=== PATIENT | male | born 1955 | race Caucasian/White ===

== ENCOUNTER 2018-04-04 03:13 | Emergency (ER) | payer OTHER, SELFPAY ==
[2018-04-04 04:09] VITALS: BP 155/88; PULSE 76; RESP 20; TEMP 36.5; O2SAT 94
[2018-04-04] MEDS: Ketorolac 30 MG/ML VIAL 15 MG IVP (04:57)
[2018-04-04] MEDS: Ondansetron 4 MG/2 ML VIAL IVP (04:59)
[2018-04-04] MEDS: MORPHine 10 MG/ML VIAL 5 MG IVP (05:02)
[2018-04-04 05:03] LABS: Abs Immature Grans 0.02 k/cumm (0.0-0.09); Absolute Basophil Count 0.02 k/cumm (0.0-0.2); Absolute Eosinophil Count 0.03 k/cumm (0.0-0.7); Absolute Lymphocyte Count 0.73 k/cumm (1.2-3.4); Absolute Monocyte Count 0.37 k/cumm (0.11-0.7); Absolute Neutrophil Count 7.39 k/cumm (1.2-6.7); Basophils % 0.2; Eosinophils % 0.4; HGB 15.3 g/dL (13.5-17.5); Immature Grans % 0.2; Lymphocytes % 8.5; Mean Corp. HGB Concentration 34.8 g/dL (32.0-36.0); Mean Corpuscular Hemoglobin 31.9 pg (27.0-33.0); Mean Corpuscular Volume 91.9 fL (80-95); Mean Platelet Volume 9.1 fL (8.0-11.0); Monocytes % 4.3; Neutrophils % 86.4; Platelet Count 178 x1000/uL (130-400); RBC 4.79 m/cumm (4.50-6.00); RBC Distribution Width 13.7 % (11.8-14.1); White Blood Cell Count 8.56 k/cumm (4.4-10.8)
[2018-04-04 05:08] LABS: Anion Gap 8.7 mmol/L (3-11); BUN 22 mg/dL (7-18); CO2 29.3 mmol/L (21.0-32.0); CREATININE 0.91 mg/dL (0.70-1.30); Chloride 101 mmol/L (98-107); Glucose 153 mg/dL (70-100); Potassium 3.8 mmol/L (3.5-5.1); Sodium 139 mmol/L (136-145)
--- NOTE | 2018-04-04 05:20 | DI.CT_ITS ---
SYMPTOM/DIAGNOSIS: LEFT FLANK PAIN RENAL COLIC CT: The study was carried out without contrast enhancement according to the usual protocol. Pulmonary nodules are noted at the lung bases measuring up to 9 mm on the right side. These findings appear stable when compared with the prior study. Note is also made of elevation of the right hemidiaphragm. Simple hepatic cyst is noted in the right hepatic lobe measuring 2.1 cm. The gallbladder and biliary tree appear intact. There are no stones or ductal dilatation. The pancreas is normal. There is no pancreatic duct dilatation. The spleen is normal. There is no evidence of splenomegaly or localized splenic mass. The adrenals are normal. Bilateral nonobstructing nephrolithiasis is noted. There is mild to moderate left sided hydronephrosis and hydroureter to the level of an obstructing mid ureteral calculus at the level of L4 which measures 5 x 3 mm. Bilateral nonobstructing nephrolithiasis is apparent. Colonic diverticulosis is identified. There is no evidence of diverticulitis. There is nothing to suggest an acute appendix. There is no evidence of free air or free fluid in the intraperitoneal space. Chronic bilateral L5 spondylolysis is demonstrated and there is spondylolisthesis of L5 on S1. The soft tissues are unremarkable. There is no evidence of an aortic aneurysm. There is no evidence of lymphadenopathy. SUMMARY: Mild to moderate left sided hydronephrosis and hydroureter secondary to an obstructing calculus at the level of L4 which measures 5.3 mm
--- NOTE | 2018-04-04 05:48 | ED.GENADUL_ITS ---
Discharge Plan Disposition Patient Disposition: HOME Condition: Stable Discharge Details Chief Complaint: FlankPain Clinical Impression: Left ureteral stone Primary Care Provider: Garland Payan ED Provider: Cristian Noe Home Meds and New Rx's Prescriptions: New tamsulosin 0.4 mg capsule 0.4 mg PO DAILY Qty: 14 RF: 0 Continued venlafaxine 75 MG tablet 75 mg PO DAILY RF: 0 multivitamin 1 EACH capsule 1 ea PO DAILY RF: 0 atenolol 25 mg Tablet 25 mg PO DAILY RF: 0 No Action oxycodone 5 mg capsule 5 mg PO Q4H MDD 6 PRN (Reason: pain) Qty: 20 RF: 0 ciprofloxacin HCl 500 mg tablet 500 mg PO Q12H Qty: 10 RF: 0 Discharge Instructions Instructions: Kidney Stones (ED), How to Strain Your Urine (ED) Additional Instructions: Please contact your primary care physician to arrange follow-up. If pain persist today, please schedule follow-up appointment with urology. Please take ibuprofen over the counter - dose according to label. Return to the ER for any worsening or new concerning symptoms. Referrals: Garland Payan MD [Primary Care Provider] - Todd Harrison MD [ [facility] STAFF PHYSICIAN] - Discharge Data Discharge Date/Time-TO BE ENTERED AT DEPARTURE: 04/04/18 07:07 Medical Decision Making I was called to come to the ED for medical surge. I arrived and was directed to see multiple patients including Mr. Beach. Patient had been seen briefly by Dr. Curiel who ordered labs, CT, IVF, and analgesia. 5:53 --63-year-old male with history of renal stones, hypertension, presents today with left CVA pain and left flank pain that is consistent with prior kidney stones also with associated vomiting. No urinary symptoms. Well appearing and hemodynamically stable. Patient was given Toradol prior to my evaluation and pain now completely resolved. CT pending. Labs reviewed and nondiagnostic. 6:25 --labs reviewed: No leukocytosis, urinalysis with heavy amount of red blood cells, findings consistent with renal stone. CT of the abdomen and pelvis interpreted by radiology: Mild to moderate left sided hydronephrosis and hydroureter noted to the level of an obstructing mid left ureteral calculus at L4 measuring 5 x 3 mm. Patient was reassessed and noted significant improvement. Continues to have no pain. Copy of the radiology report was provided to the patient and I reviewed and discussed results with him. Disposition decision was made weighing the risks and benefits of hospitalization versus outpatient treatment, the risk for further decompensation, and the patient's wishes. The patient was stable and requested discharge. Prior to discharge, my usual and customary return precautions were reviewed with the patient - this included follow-up instructions and reason to return to the emergency department if condition worsens, does not improve as expected, or other new concerns arise. Will prescribe flomax. Advised follow-up pcp and urology if pain persists. Strainer provided. HPI General Mode of arrival: ambulatory . Date/Time Provider Initiated Documentation: 04/04/18 04:35 . Limitations to Documentation: no limitations . Information obtained by: patient . HPI Narrative: 63-year-old male with history of kidney stones in the past, hypertension, presents with chief complaint of left flank pain. Patient notes that he started to have left flank pain at 9:00 last night. Pain was described as an ache. Pain was severe and rated 10/10. Patient had associated nausea and vomiting x3. No recent dysuria or hematuria. Yesterday he was feeling fine. No fever. Patient received Toradol IV prior to my assessment and pain is completely resolved. Related Data Home Medications Medication Instructions Recorded Confirmed multivitamin 1 ea PO DAILY 07/03/12 04/18/18 venlafaxine 75 mg PO DAILY 07/03/12 04/18/18 atenolol 25 mg PO DAILY 04/04/18 04/18/18 tamsulosin 0.4 mg PO DAILY #14 cap 04/04/18 04/18/18 ciprofloxacin 500 mg tablet 500 mg PO Q12H #10 tab 04/12/18 04/18/18 oxycodone 5 mg capsule 5 mg PO Q4H PRN #20 cap MDD 6 04/12/18 04/18/18 Previous Rx's Medication Instructions Recorded tamsulosin 0.4 mg PO DAILY #14 cap 04/04/18 ciprofloxacin 500 mg tablet 500 mg PO Q12H #10 tab 04/12/18 oxycodone 5 mg capsule 5 mg PO Q4H PRN #20 cap MDD 6 04/12/18 Allergies Allergy/AdvReac Type Severity Reaction Status Date / Time Tetanus Vaccines and Toxoid Allergy Severe Anaphylaxsi Verified 04/18/18 08:14 [Tetanus Vaccines & Toxoid] s General Stated Complaint: FlankPain FLORESITA: 3 Review of Systems Review of Systems All systems reviewed & are unremarkable except as noted in HPI and below PFSH Medical History HTN (hypertension) Obesity Surgical History Colonoscopy - IV Sedation Colonoscopy - MAC (06/25/17) Social History Smoking/Tobacco Use Status: Former Tobacco Use Exam Const General: cooperative and no acute distress HENMT Head: normocephalic and atraumatic Mouth: moist mucous membranes Eyes Conjunctivae: normal conjunctivae Sclera: normal sclerae Neck Neck: trachea midline and supple Resp Auscultation: clear to auscultation bilaterally, no rales, no rhonchi and no wheezes Cardio Jugular venous pressure: no JVD Rate: regular rate and not tachycardic Rhythm: regular rhythm GI Palpation: soft, not firm, no guarding, no masses, not rigid and nontender Back/Spine/Pelvis Back: no CVA tenderness Skin General skin exam: no rashes or lesions noted Neuro General: alert, awake, oriented x3 and tone normal Extrem General: no edema Psych Appearance: grossly normal Mental Status: mental status grossly normal Speech and Movement: speech and movement normal Course Vital Signs Temperature 36.5 C 04/04/18 04:09 Pulse 76 04/04/18 04:09 Respiratory Rate 20 04/04/18 04:09 Blood Pressure 155/88 H 04/04/18 04:09 Pulse Oximetry 94 L 04/04/18 04:09 Temperature 36.5 C 04/04/18 04:09 Temperature Source Temporal Artery Scan 04/04/18 04:09 Pulse 76 04/04/18 04:09 Respiratory Rate 20 04/04/18 04:09 Respiratory Effort 04/04/18 04:09 Blood Pressure 155/88 H 04/04/18 04:09 Pulse Oximetry 94 L 04/04/18 04:09 Oxygen Delivery Method Room Air 04/04/18 04:09 Oxygen Flow Rate 0 04/04/18 04:09 Pain Level 8 04/04/18 05:02 Lab/Test Results Lab/Test Results: Laboratory Tests Range/Units 04/04/18 04/04/18 04:25 04:25 WBC (4.4-10.8) k/cumm 8.56 RBC (4.50-6.00) m/cumm 4.79 Hgb (13.5-17.5) g/dL 15.3 Hct (40.0-50.0) % 44.0 MCV (80-95) fL 91.9 MCH (27.0-33.0) pg 31.9 MCHC (32.0-36.0) g/dL 34.8 RDW (11.8-14.1) % 13.7 Plt Count (130-400) x1000/uL 178 MPV (8.0-11.0) fL 9.1 Immature Gran % 0.2 Neutrophils % 86.4 Lymphocytes % 8.5 Monocytes % 4.3 Eosinophils % 0.4 Basophils % 0.2 Absolute Neutrophils (1.2-6.7) k/cumm 7.39 H Absolute Lymphocytes (1.2-3.4) k/cumm 0.73 L Absolute Monocytes (0.11-0.7) k/cumm 0.37 Absolute Eosinophils (0.0-0.7) k/cumm 0.03 Absolute Basophils (0.0-0.2) k/cumm 0.02 Sodium (136-145) mmol/L 139 Potassium (3.5-5.1) mmol/L 3.8 Chloride (98-107) mmol/L 101 Carbon Dioxide (21.0-32.0) mmol/L 29.3 Anion Gap (3-11) mmol/L 8.7 BUN (7-18) mg/dL 22 H Creatinine (0.70-1.30) mg/dL 0.91 Estimated GFR/1.73 m2 (mL/min/1.73m2) >= 60.00 Glucose (70-100) mg/dL 153 H Calcium (8.5-10.1) mg/dL 9.0
[2018-04-04 06:10] LABS: Bilirubin Negative (Negative); Blood Large (Negative); Clarity Cloudy; Glucose Negative (Negative); Ketones Negative (Negative); Leukocyte Esterase Negative (Negative); Nitrite Negative (Negative); Specific Gravity 1.025 (1.005-1.025); Urobilinogen 0.2 EU/dL (Up TO 0.2); pH 6.5 (5-8)
--- NOTE | 2018-04-04 06:20 | DI.VRAD_ITS ---
EXAM: CT Abdomen and Pelvis Without Contrast EXAM DATE/TIME: 04/04/2018 4:41 AM CLINICAL HISTORY: 63 years old, male; Pain; Abdominal pain; Localized; Other: Left flank and llq; Patient HX: Left flank pain moving down into llq TECHNIQUE: Axial computed tomography images of the abdomen and pelvis without contrast. All CT scans at this facility use at least one of these dose optimization techniques: automated exposure control; mA and/or kV adjustment per patient size (includes targeted exams where dose is matched to clinical indication); or iterative reconstruction. Coronal and sagittal reformatted images were created and reviewed. COMPARISON: CT RENAL COLIC WO CONTRAST 04/19/2014 12:06 PM FINDINGS: Lower thorax: Pulmonary nodules at the lung bases measure up to 9 mm on the right. These appear to be stable when compared with the prior study. Elevated right hemidiaphragm ABDOMEN: Liver: Simple hepatic cyst in the right lobe measures 2.1 cm Gallbladder and bile ducts: Normal. No calcified stones. No ductal dilation. Pancreas: Normal. No ductal dilation. Spleen: Normal. No splenomegaly. Adrenals: Normal. No mass. Kidneys and ureters: Bilateral nonobstructing nephrolithiasis noted. Mild to moderate left-sided hydronephrosis and hydroureter noted to the level of an obstructing mid left ureteral calculus at L4 measuring 5 x 3 mm. Bilateral nonobstructing nephrolithiasis noted. Stomach and bowel: Colonic diverticulosis is present without evidence for inflammation. Appendix: No evidence of appendicitis. PELVIS: Bladder: Unremarkable as visualized. Reproductive: Unremarkable as visualized. ABDOMEN and PELVIS: Intraperitoneal space: Normal. No free air. No significant fluid collection. Bones/joints: Chronic bilateral L5 spondylolysis and spondylolisthesis of L5 on S1. Soft tissues: Unremarkable. Vasculature: Normal. No abdominal aortic aneurysm. Lymph nodes: Normal. No enlarged lymph nodes. IMPRESSION: Mild to moderate left-sided hydronephrosis and hydroureter noted to the level of an obstructing mid left ureteral calculus at L4 measuring 5 x 3 mm. Dictated and Authenticated by: Jeremiah Ramos MD. Ordering:ARIEL Miner MD
[2018-04-04 06:21] LABS: C & S Indicated? No
[2018-04-04 07:14] VITALS: BP 148/80; PULSE 82; RESP 16; O2SAT 98
--- NOTE | 2018-04-04 07:14 | NUR.NOTE ---
Nursing Note: gave pt urinal and urine screen to take home
== END 2018-04-04 07:07 | disposition home or self-care (01) ==
PROVIDERS: Emergency Medicine; Emergency Provider Student in an Organized Health Care Education/Training Program; PCP General Practice
DX: N20.1 Calculus of ureter (principal); I10 Essential (primary) hypertension
CPT/HCPCS: 36415; 80048; 96374; 96375; 99284; 74176; 81003; 81015; 85025; J1885; J2270; J2405

== ENCOUNTER 2018-04-18 07:32 | Day surgery (SDC) | payer OTHER, SELFPAY ==
[2018-04-18 07:37] VITALS: BP 146/98; PULSE 70; RESP 16; TEMP 36.9; O2SAT 95
[2018-04-18] MEDS: Lactated Ringers 1,000 ML 80 ML IV (08:31)
[2018-04-18] MEDS: Lidocaine 2% Jelly 6 ML SYR (09:20)
[2018-04-18] MEDS: Omnipaque 300 MG/ML 50 ML BTL (09:30)
--- NOTE | 2018-04-18 09:35 | DI.RAD_ITS ---
SYMPTOM/DIAGNOSIS: LT URETERAL STONE C-ARM OR RETROGRADE: Fluoroscopy Time: 19.2 sec, 5.59 mGy. Fluoroscopy was utilized by Dr Harrison during the retrograde evaluation of the left renal collecting system. Please refer to the procedure report for complete details.
--- NOTE | 2018-04-18 09:41 | W.PM.DSUDISC ---
Discharge Plan Disposition Patient Disposition: HOME Condition: Stable Discharge Details Reason For Visit: (L) URETERAL STONE Attending Provider: Todd Harrison Primary Care Provider: Garland Payan Home Meds and New Rx's Prescriptions: No Action oxycodone 5 mg capsule 5 mg PO Q4H MDD 6 PRN (Reason: pain) Qty: 20 RF: 0 ciprofloxacin HCl 500 mg tablet 500 mg PO Q12H Qty: 10 RF: 0 venlafaxine 75 MG tablet 75 mg PO DAILY RF: 0 multivitamin 1 EACH capsule 1 ea PO DAILY RF: 0 atenolol 25 mg Tablet 25 mg PO DAILY RF: 0 tamsulosin 0.4 mg capsule 0.4 mg PO DAILY Qty: 14 RF: 0 Discharge Instructions Additional Instructions: F/U with me 4 to 6 weeks for renal ultrasound and to review stone analysis Activity:: Activity as Tolerated Diet:: As Tolerated Discharge Orders Discharge Orders: Discharge Order (Routine); Ordered 04/18/18 Ordered By: Todd Harrison DS: Diagnosis Discharge Diagnosis (1) Left ureteral stone: Status: Acute
[2018-04-18 09:55] VITALS: BP 120/69; PULSE 76; RESP 15; TEMP 37.2; O2SAT 95
[2018-04-18 10:00] VITALS: BP 131/71; PULSE 72; RESP 20; TEMP 37.2; O2SAT 94
[2018-04-18 10:05] VITALS: BP 130/73; PULSE 76; RESP 15; TEMP 37.1; O2SAT 97
[2018-04-18 10:16] VITALS: BP 136/73; PULSE 68; RESP 18; TEMP 37.1; O2SAT 98
[2018-04-18 10:45] VITALS: BP 129/77; PULSE 68; RESP 16; TEMP 36.8; O2SAT 94
[2018-04-18] MEDS: Phenazopyridine 200 MG TAB PO (10:46)
--- NOTE | 2018-04-18 11:39 | ROE_ITS ---
REPORT OF OPERATIVE PROCEDURE DATE OF PROCEDURE April 18, 2018 PREOPERATIVE DIAGNOSIS Left ureteral stone. POSTOPERATIVE DIAGNOSIS Left ureteral stone. PROCEDURE Cystoscopy, left retrograde pyelogram, left ureteral dilation, left ureteroscopy with stone extractio n. SURGEON Todd Harrison M.D. ANESTHESIA General. COMPLICATIONS None. ESTIMATED BLOOD LOSS Minimal. HISTORY This is a 63-year-old gentleman, who has a recent finding of a left mid ureteral stone. He has had pe rsistent symptoms. He presents now for stone manipulation. OPERATIVE REPORT The patient was brought to the Operating Room on 04/18/2018. After successful induction of General a nesthesia, he was placed in the dorsal lithotomy position. His genitalia was prepped and draped. A #22-Montserratian rigid cystoscopy was passed through the urethra into the bladder. Prior to passing the s cope, 2% Xylocaine jelly had been instilled into the urethra. We used a 30-degree lens to visualize the urethral and bladder mucosae. The pendulous, bulbous and me mbranous urethras all appeared normal with no strictures. The prostatic urethra showed some lateral l obe enlargement. The bladder neck was entered. The bladder mucosa was inspected. The left ureteral orifice appeared edematous. I was unable to pass an access catheter into the orific e itself, so we used the access catheter to help us guide a Glidewire into the orifice. I was then ab le to advance the wire into the distal ureter and the catheter could be passed over the wire. The retrograde film demonstrated a filling defect just inside the ureteral orifice. The Glidewire was then repositioned and the access catheter was removed. I dilated the distal ureter using a 4-cm UroM ax balloon. I was then able to advance my semi-rigid ureteroscope through the urethra into the bladde r and up the left ureter. A stone was visualized there in the distal ureter. It was grasped in a Esther stone basket and remove d in its entirety. With no obvious trauma to the ureter, we decided not to place a ureteral stent. The stone was sent to pathology for chemical analysis. All wires and scopes were removed. The patient tolerated this procedure well with no complications. CC: Garland Payan M.D.
[2018-04-20 00:40] LABS: Source: Ureter
== END 2018-04-18 11:16 | disposition home or self-care (01) ==
PROVIDERS: PCP General Practice; Visit Provider Urology
PROC: (CPT 52352; principal; 2018-04-18 08:30)
DX: N20.1 Calculus of ureter (principal); N13.5 Crossing vessel and stricture of ureter without hydronephrosis
CPT/HCPCS: 52352; 52344; 74420; 82365; J0690; J1100; J3010; Q9967

== ENCOUNTER 2018-05-21 00:17 | Outpatient (CLI) | payer OTHER, SELFPAY ==
--- NOTE | 2018-05-21 13:59 | DI.US_ITS ---
SYMPTOMS/DIAGNOSIS: S/P URETEROSCOPY, ? HYDRONEPHROSIS, N20.1 RENAL ULTRASOUND: Comparison is made with CT dated . The left kidney measures 12.5 cm in length. No hydronephrosis is seen. A nonobstructing stone is seen at the lower pole of the left kidney. The right kidney measures 11.6 cm in length. A nonobstructing stone is seen near the lower pole. An additional calcification is seen near the upper pole of the right kidney. The prevoid bladder volume measured 78 cc's. The postvoid residual is 4 cc's. Both ureteral jets were visualized. The prostate was poorly seen. It measures roughly 14 cc's. IMPRESSION: Bilateral nonobstructing renal calculi. No evidence of hydronephrosis.
== END 2018-05-21 00:37 ==
PROVIDERS: PCP General Practice; Visit Provider Urology
DX: N20.1 Calculus of ureter (principal)
CPT/HCPCS: 76770

== ENCOUNTER 2018-09-06 14:14 | Outpatient (CLI) | payer OTHER, SELFPAY ==
[2018-09-06 15:20] LABS: Abs Immature Grans 0.01 k/cumm (0.0-0.09); Absolute Basophil Count 0.03 k/cumm (0.0-0.2); Absolute Eosinophil Count 0.32 k/cumm (0.0-0.7); Absolute Lymphocyte Count 1.58 k/cumm (1.2-3.4); Absolute Monocyte Count 0.65 k/cumm (0.11-0.7); Absolute Neutrophil Count 2.65 k/cumm (1.2-6.7); Basophils % 0.6; Eosinophils % 6.1; HCT 43.8 % (40.0-50.0); HGB 15.3 g/dL (13.5-17.5); Immature Grans % 0.2; Lymphocytes % 30.2; Mean Corp. HGB Concentration 34.9 g/dL (32.0-36.0); Mean Corpuscular Hemoglobin 31.8 pg (27.0-33.0); Mean Corpuscular Volume 91.1 fL (80-95); Mean Platelet Volume 8.8 fL (8.0-11.0); Monocytes % 12.4; Neutrophils % 50.5; Platelet Count 182 x1000/uL (130-400); RBC 4.81 m/cumm (4.50-6.00); RBC Distribution Width 13.3 % (11.8-14.1); White Blood Cell Count 5.24 k/cumm (4.4-10.8)
[2018-09-06 15:29] LABS: Bilirubin Negative (Negative); Blood Negative (Negative); Clarity Clear; Glucose Negative (Negative); Ketones Negative (Negative); Leukocyte Esterase Negative (Negative); Nitrite Negative (Negative); Specific Gravity 1.015 (1.005-1.025)
[2018-09-06 16:02] LABS: BUN 15 mg/dL (7-18); CREATININE 0.73 mg/dL (0.70-1.30); Chloride 103 mmol/L (98-107); Glucose 87 mg/dL (70-100); Potassium 4.2 mmol/L (3.5-5.1); Sodium 138 mmol/L (136-145)
== END 2018-09-06 14:34 ==
PROVIDERS: PCP General Practice; Visit Provider Orthopaedic Surgery
DX: M25.561 Pain in right knee (principal); M17.11 Unilateral primary osteoarthritis, right knee; Z01.812 Encounter for preprocedural laboratory examination; Z01.818 Encounter for other preprocedural examination
CPT/HCPCS: 36415; 80051; 82947; 84520; 81003; 82565; 85025

== ENCOUNTER 2018-09-18 05:59 | Inpatient (IN) | payer OTHER, SELFPAY ==
[2018-09-06 14:34] VITALS: BP 146/95; PULSE 65; RESP 18; TEMP 37.1; O2SAT 94
[2018-09-06 14:40] VITALS: BP 146/95; PULSE 65; RESP 18; TEMP 37.1; O2SAT 94
[2018-09-18] VITALS (14 sets, daily range): BP systolic 89–144; BP diastolic 56–95; PULSE 71–89; RESP 11–22; TEMP 35.7–38.3; O2SAT 86–98
[2018-09-18] MEDS: Lactated Ringers 1,000 ML 80 ML IV (06:33)
[2018-09-18] MEDS: Bupivacaine 0.25% Pres-Free 10 ML VIAL (07:17)
[2018-09-18] MEDS: Bupivacaine LIPOSOME/PF 133 MG/10 ML VIAL IJ (07:17)
[2018-09-18] MEDS: ceFAZolin 2 GM/50 ML BAG IVPB (07:28)
[2018-09-18] MEDS: Hydrogen Peroxide 3% 480 ML BTL (08:40)
--- NOTE | 2018-09-18 10:20 | W.PM.HP.N ---
PFSH Medical History Hx of fracture of femur (Acute) Kidney stone (Chronic) HTN (hypertension) Obesity Surgical History Hx of total knee replacement (Acute) Hx of tonsillectomy (Chronic) Colonoscopy - IV Sedation Colonoscopy - MAC (06/25/17) Social History Smoking/Tobacco Use Status: Former Tobacco Use Drug use: Never Do you feel safe in your relationship?: Yes Meds Home Medications Medication Instructions Recorded Confirmed Type multivitamin 1 ea PO DAILY 07/03/12 09/18/18 History atenolol 25 mg PO DAILY 04/04/18 09/18/18 History venlafaxine [Effexor XR] 75 mg PO DAILY 09/18/18 09/18/18 History Allergies Allergy/AdvReac Type Severity Reaction Status Date / Time Tetanus Vaccines and Toxoid Allergy Severe Anaphylaxsi Verified 09/18/18 06:09 [Tetanus Vaccines & Toxoid] s Results Labs : 09/20/18 06:25 09/20/18 06:25 Last Vital Signs Temp 96.3 F L 09/18/18 06:17 Pulse 73 09/18/18 06:17 Resp 18 09/18/18 06:17 BP 140/95 H 09/18/18 06:17 Pulse Ox 96 09/18/18 06:17
--- NOTE | 2018-09-18 10:36 | DI.RAD_ITS ---
SYMPTOMS/DIAGNOSIS: RT TOTAL KNEE ARTHROPLASTY RIGHT KNEE: Two views. Comparison examination 10/09/11. The patient is now status post right total knee replacement. The orthopedic hardware appears in good position. The bones are intact. Post surgical changes are seen in the soft tissues. Skin ilan are present. IMPRESSION: Status post right TKR.
[2018-09-18] MEDS: POTASSIUM CHLORIDE/D5-0.9%NACL 1,000 ML 125 MEQ IV (11:21)
--- NOTE | 2018-09-18 12:14 | ROE_ITS ---
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 PROCEDURE Right total knee arthroplasty, cemented utilizing size 4 PFC Sigma posterior cruciate retaining femor al component with rotating platform size 4 10-mm polyethylene insert and a 35-mm patellar button. SURGEON Mario Cabrera M.D. LAW TUTOR Skye Magana ANESTHESIA Femoral nerve block followed by General via LMA by Tarik Antoine CRNA PREP ChloraPrep INDICATIONS This patient is approximately 6 years status post successful left total knee arthroplasty. He returns because he is having increasing pain in his right knee. Previous radiographs have shown significant medial compartment arthritis with loss of articular cartilage and varus deformity. He has developed a flexion contracture. He has failed to respond to conservative treatment having been treated with Vis cosupplementation for the past two to three years. I recommended total knee arthroplasty. I explained to the patient that he might require patella re-surfacing on his right knee as opposed to his left k nee, which had a pristine articular cartilage on the patella and was not re-surfaced. He understands that. I also discussed with him the possibility that he might need a Ham catheter if he is unable t o void postoperative, but we did not have to use one with his previous surgery and he only has noctur ia x1. I discussed the planned procedure in detail, including utilization of the femoral nerve block elian and tranexamic acid. He understood and wished and proceed. DESCRIPTION OF PROCEDURE The patient was greeted in the Day Surgery holding area. His right leg was marked with a surgical mar ker. I reviewed the planned procedure with the patient and his . He underwent femoral nerve block elian by Tarik Antoine CRNA, followed by General anesthesia via LMA. He received 2 grams of Ancef as pro phylactic antibiotic. The right lower extremity was prepped in its entirety from the toes to the groin. A pneumatic tourniq uet was applied to the proximal thigh. After applying sterile drapes, timeout was instituted verifyi ng the procedure, the risks and concerns of Anesthesia and nursing, as well as the dose of his antibi otic, we then proceeded. A standard approach for right total knee arthroplasty was utilized. The skin and subcutaneous tissues were incised and hemostasis was controlled by electrocautery. The tourniquet was inflated to 380 mm Hg prior to the skin incision with elevation for approximately 2 minutes. A medial parapatellar arthrotomy was then performed. A copious amount of joint fluid was encountered. It had a pristine appearance. There was complete loss of articular cartilage over the medial femora l condyle and medial tibial plateau. There was also significant chondromalacia of the patella and an area of missing of articular cartilage of the patella. With the patella everted, the knee was exposed . The remnants of the medial and lateral menisci were excised. The ACL was intact and removed. A intr amedullary guide ksenia was then used to resect the distal femur. A 6-degree valgus bushing was used to resect the articular surface of the femur to help correct for the varus deformity. Next jigs were utilized to allow placement of a size 4 posterior cruciate retaining femoral component . This fit perfectly with the trial component fitting appropriately. Care was taken to resect only 11 millimeters from the distal femur to correspond to the patient's flexion contracture and to minimize ligamentous issues. The proximal tibia was then resected using an external alignment jig. More bone was taken from the lateral side than the medial side, which was already worn away. A 3-degree posteri or slopped guide was used. It was felt that a size 4 tibial tray would have the most appropriate fit and the trail reduction showed that it fit perfectly. It was felt that a 10-mm polyethylene insert w ould be most appropriate for the tibia. The patella was measured with a caliper and measured 26 mill imeters. It was resected by a combination of a cutting jig and freehand technique, and it was felt th at the 35-mm tripronged patellar component would have the most appropriate fit. After drilling the fi xation lug holes, the trial component restored the patellar thickness to 24.5 mm. I felt that this wa s acceptable. I then made sure that there was no overhanging bone of the posterior condyles in relati onship to the femoral trial. All loose debris was evacuated from the knee. Methylmethacrylate contain ing gentamicin was then mixed in a vacuum chamber and the tibial component was cemented into place us ing standardized pressurization techniques. Extraneous cement was removed. A second batch of Methylme thacrylate also containing gentamicin was then mixed in a vacuum chamber for the femoral fixation, as well as for the patellar fixation. After the second batch of cement was cured, extraneous cement was removed. The knee was copiously irrigated and I was able to place the 10-mm size 4 rotating platform tray into the knee without significant difficulty. There was no evidence of any bearing spinout and the patella tracked perfectly. Betadine irrigation protocol was then instituted, dilute Betadine 17.5 cc and 500 cc of saline was placed in the knee over the course of three minutes. The knee was then i rrigated with 1000 cc of sterile saline. The media parapatellar arthrotomy was closed with sutures o f #1-Vicryl in a [id number] fashion. The peritenon was repaired with #2-0 Vicryl. The subcutaneous tissues were closed with #2-0 Vicryl. At t his point, the tourniquet was deflated and 3 grams of tranexamic acid was placed inside the joint mix ed with 100 cc of saline. There was excellent return of circulation to the foot including the posteri or tibial pulse and capillary refill. The skin was closed with ilan. ESTIMATED BLOOD LOSS 47 cc. No blood was replaced intraoperatively. The wounds were dressed with Xeroform gauze, 4x4s, ABD Pads, a 6-inch confirming gauze bandage, two 6-inch Adrian wraps, a Cryo/Cuff, and a commercial knee immobiliz er. The patient was taken to the Recovery Room in satisfactory condition tolerating the procedure we ll.
--- NOTE | 2018-09-18 12:15 | NUR.NOTE ---
Nursing Note: 1054: pt arrives to room 216 via stretcher from pacu. pt moved from bed to stretcher via hover mat. pt alert/oriented x 3. pt has patent IV in RH with LR at this time. pt does not have a burns at this time. pt +pp's in bilateral feet. pt has sensation and movement to operative leg; right knee with robin wrap and cryo cuff with no s/s of bleeding at this time. knee immobilizer in place. pt ankle placed on 2 pillows; no pillow beneath the knee at this time. heart regular, LS clear, diminished in bases bilaterally, hypo bs, last bowel movement was 6/4 per pt report. pt denies pain at this time. see vs intervention for more information. pt oriented to call trevizo/tv remote. gingerale at the bedside. continue to monitor.
--- NOTE | 2018-09-18 12:48 | PT.INIE ---
Date of service: 09/18/18 Time of Service: 12:15 PT Notes Inpatient Physical Therapy Evaluation Date: 09/18/18 Referring Doctor: Dr. Cabrera PT Orders: PT CONSULT: right TKA 09/18/18. If patient is willing and comfortable, may be up to chair with walker. WBAT RLE. Patient s/p LTKA 6 years ago. Patient had a femoral nerve block and may have poor quad function today, so if he gets up keep knee immobilizer on. CPM and cryocuff protocols while in bed Precautions: fall, standard Patient Profile/Admitting Diagnosis: Patient is post op day 0 after right TKA. PMHX: HTN Social History/Home Situation: Patient lives independently in private home. He reports 3 SANAM via his deck, then is able to stay on main level of home for the time being. He has assistance from family members at home. Equipment Owned/DME: FWW Subjective: Patient reports that he is feeling well, and is anxious to get up out of bed. He states that he would prefer to avoid the CPM if possible due to pain with use after previous knee replacement. Objective: General Observation: Resting in bed with IV in RUE. Adrian wrap, cryocuff and knee immobilizer to RLE. Mental Status: A&Ox3. Pain: well managed ROM: Right Upper Extremity: WFL Left Upper Extremity: WFL Right Lower Extremity: Knee motion -5 extension to 45 degrees flexion as assessed actively Left Lower Extremity: WFL Strength: Right Upper Extremity: WFL Left Upper Extremity: WFL Right Lower Extremity: Patient functionally demonstrates SLR without extension lag. Quads at least 3/5 in LAQ position. Left Lower Extremity: WFL Sensation: intact distally Bed Mobility/Transfers: supine-sit: supervision with HOB at 30 sit-stand: supervision, with impulsive transfer stand-sit: supervision bed-chair: CG with FWW Gait: Patient ambulates 10' with FWW and CG. Balance: Static Sitting: Normal Dynamic Sitting: good Static Standing: good Dynamic Standing: fair Special Tests: Mobility Limitations Standardized Measure [facility] AM-PAC 6 clicks Basic Mobility Inpatient Short Form: Raw Score: 18 CMS Score: 46% Informed Consent/Education: Patient instructed in purpose of PT consult and plan of care. Assessment: Patient is a 63 year old male referred to physical therapy services with the diagnosis of right knee OA, day 0 post TKA. Patient presents with clinical signs and symptoms consistent with post-op status, as demonstrated by the following impairment level findings: 1. Decreased right knee ROM 2. Decreased RLE strength 3. Decreased activity tolerance 4. Decreased safety awareness Impairments are contributing to the following functional limitations: 1. Unable to independently ambulate household distances 2. Unable to tolerate community distance ambulation 3. unable to manage stairs 4. increased fall risk immediately post-op Patient is assessed as Low [id number] complexity based on the following: History: 63 year old male on day 0 s/p right TKA Examination: functional limitations as above Presentation: evolving Decision Making: low complexity Goals: Goals X1 week 1. Supine-Sit : supervision 2. Sit-Supine : supervision 3. Sit-Stand : supervision 4. Stand-Sit : supervision 5. Bed-Chair : supervision with FWW 6. Chair-Bed : supervision with FWW 7. Gait : supervision with FWW x 150' 8. Stairs : ascend and descend 3 steps with single rail and supervision 9. Independent with home exercise program Plan of Care/Treatment Plan: 1-2x/day, 7 days/week x 1 week. Plan of care has been reviewed with the VP TREASURER providing the service under Physical Therapy direction. Initiate Physical Therapy intervention for strengthening, bed mobility, transfers, gait, stairs, balance training, use of assistive device. Patient was offered CPM setup, which he declines due to poor experience in the past. DISCHARGE RECOMMENDATIONS: Home with outpatient PT. No equipment needs TREATMENT CODE/TIME: 12:15-12:35 ([id number]) Marleen Toledo, PT, DPT [facility]
--- NOTE | 2018-09-18 13:01 | IN_ITS ---
Date of service: 09/18/18 Time of Service: 12:15 PT Notes Inpatient Physical Therapy Evaluation Date: 09/18/18 Referring Doctor: Dr. Cabrera PT Orders: PT CONSULT: right TKA 09/18/18. If patient is willing and comfortable, may be up to chair with walker. WBAT RLE. Patient s/p LTKA 6 years ago. Patient had a femoral nerve block and may have poor quad function today, so if he gets up keep knee immobilizer on. CPM and cryocuff protocols while in bed Precautions: fall, standard Patient Profile/Admitting Diagnosis: Patient is post op day 0 after right TKA. PMHX: HTN Social History/Home Situation: Patient lives independently in private home. He reports 3 SANAM via his deck, then is able to stay on main level of home for the time being. He has assistance from family members at home. Equipment Owned/DME: FWW Subjective: Patient reports that he is feeling well, and is anxious to get up out of bed. He states that he would prefer to avoid the CPM if possible due to pain with use after previous knee replacement. Objective: General Observation: Resting in bed with IV in RUE. Adrian wrap, cryocuff and knee immobilizer to RLE. Mental Status: A&Ox3. Pain: well managed ROM: Right Upper Extremity: WFL Left Upper Extremity: WFL Right Lower Extremity: Knee motion -5 extension to 45 degrees flexion as assessed actively Left Lower Extremity: WFL Strength: Right Upper Extremity: WFL Left Upper Extremity: WFL Right Lower Extremity: Patient functionally demonstrates SLR without extension lag. Quads at least 3/5 in LAQ position. Left Lower Extremity: WFL Sensation: intact distally Bed Mobility/Transfers: supine-sit: supervision with HOB at 30 sit-stand: supervision, with impulsive transfer stand-sit: supervision bed-chair: CG with FWW Gait: Patient ambulates 10' with FWW and CG. Balance: Static Sitting: Normal Dynamic Sitting: good Static Standing: good Dynamic Standing: fair Special Tests: Mobility Limitations Standardized Measure [facility] AM-PAC 6 clicks Basic Mobility Inpatient Short Form: Raw Score: 18 CMS Score: 46% Informed Consent/Education: Patient instructed in purpose of PT consult and plan of care. Assessment: Patient is a 63 year old male referred to physical therapy services with the diagnosis of right knee OA, day 0 post TKA. Patient presents with clinical signs and symptoms consistent with post-op status, as demonstrated by the following impairment level findings: 1. Decreased right knee ROM 2. Decreased RLE strength 3. Decreased activity tolerance 4. Decreased safety awareness Impairments are contributing to the following functional limitations: 1. Unable to independently ambulate household distances 2. Unable to tolerate community distance ambulation 3. unable to manage stairs 4. increased fall risk immediately post-op Patient is assessed as Low 07339 complexity based on the following: History: 63 year old male on day 0 s/p right TKA Examination: functional limitations as above Presentation: evolving Decision Making: low complexity Goals: Goals X1 week 1. Supine-Sit : supervision 2. Sit-Supine : supervision 3. Sit-Stand : supervision 4. Stand-Sit : supervision 5. Bed-Chair : supervision with FWW 6. Chair-Bed : supervision with FWW 7. Gait : supervision with FWW x 150' 8. Stairs : ascend and descend 3 steps with single rail and supervision 9. Independent with home exercise program Plan of Care/Treatment Plan: 1-2x/day, 7 days/week x 1 week. Plan of care has been reviewed with the SENIOR MARKETING ENGINEER providing the service under Physical Therapy direction. Initiate Physical Therapy intervention for strengthening, bed mobility, transfers, gait, stairs, balance training, use of assistive device. Patient was offered CPM setup, which he declines due to poor experience in the past. DISCHARGE RECOMMENDATIONS: Home with outpatient PT. No equipment needs TREATMENT CODE/TIME: 12:15-12:35 ([id number]) Marleen Toledo, PT, DPT [facility]
--- NOTE | 2018-09-18 13:33 | PT.INTREAT ---
Date of service: 09/18/18 Time of Service: 13:15 PT Notes Inpatient Physical Therapy Treatment Note [facility] Date: 09/18/18 PRECAUTIONS: Fall, standard SUBJECTIVE: Patient states that he's been sitting up to chair and feels ready for a nap. He requests assistance getting back to bed. OBJECTIVE: PAIN: well managed. Post-transfer, he reports right groin pain which alleviates after isometric exercises. BED MOBILITY/TRANSFERS Sit-supine: Supervision with HOB at 30 Sit-stand: supervision, with impulsive movement Stand-sit: supervision Chair-bed: CG with FWW, impulsive behaviors GAIT Assistive Device: FWW Weight bearing: AT Assist: CG Distance: 3' Deviation: poor safety awareness THEREX: Patient was instructed in supine exercise program. He tolerates heel slide x 3, demonstrating 0-50 degrees knee flexion. Instructed in further therex as noted on flowsheet. ASSESSMENT: Good tolerance to early mobilization, although with poor safety awareness during transfers. PLAN: Continue progressing ambulation and strengthening as tolerated. TREATMENT CODE/TIME: 1:15-1:30 ([id number]) Marleen Toledo, PT, DPT [facility]
--- NOTE | 2018-09-18 13:38 | PTTR_ITS ---
Date of service: 09/18/18 Time of Service: 13:15 PT Notes Inpatient Physical Therapy Treatment Note [facility] Date: 09/18/18 PRECAUTIONS: Fall, standard SUBJECTIVE: Patient states that he's been sitting up to chair and feels ready f or a nap. He requests assistance getting back to bed. OBJECTIVE: PAIN: well managed. Post-transfer, he reports right groin pain which alleviates after isometric exercises. BED MOBILITY/TRANSFERS Sit-supine: Supervision with HOB at 30 Sit-stand: supervision, with impulsive movement Stand-sit: supervision Chair-bed: CG with FWW, impulsive behaviors GAIT Assistive Device: FWW Weight bearing: AT Assist: CG Distance: 3' Deviation: poor safety awareness THEREX: Patient was instructed in supine exercise program. He tolerates heel slide x 3, demonstrating 0-50 degrees knee flexion. Instructed in further therex as noted on flowsheet. ASSESSMENT: Good tolerance to early mobilization, although with poor safety awareness during transfers. PLAN: Continue progressing ambulation and strengthening as tolerated. TREATMENT CODE/TIME: 1:15-1:30 ([id number]) Marleen Toledo, PT, DPT [facility]
[2018-09-18] MEDS: oxyCODONE 5 MG TAB PO ×2 (16:35→20:14)
[2018-09-18] MEDS: Acetaminophen 325 MG TAB 650 MG PO (20:14)
[2018-09-19] VITALS (8 sets, daily range): BP systolic 109–134; BP diastolic 67–75; PULSE 70–89; RESP 17–18; TEMP 36.5–39.4; O2SAT 94–98
[2018-09-19] MEDS: oxyCODONE 5 MG TAB PO ×4 (00:16→19:45)
[2018-09-19] MEDS: Acetaminophen 325 MG TAB 650 MG PO ×4 (00:17→19:45)
[2018-09-19 06:54] LABS: HCT 39.3 % (40.0-50.0); Mean Corp. HGB Concentration 33.1 g/dL (32.0-36.0); Mean Corpuscular Hemoglobin 31.4 pg (27.0-33.0); Mean Corpuscular Volume 94.9 fL (80-95); Mean Platelet Volume 8.8 fL (8.0-11.0); Platelet Count 162 x1000/uL (130-400); RBC 4.14 m/cumm (4.50-6.00); RBC Distribution Width 13.9 % (11.8-14.1)
[2018-09-19 07:02] LABS: Anion Gap 10.1 mmol/L (3-11); BUN 28 mg/dL (7-18); CO2 24.9 mmol/L (21.0-32.0); CREATININE 1.01 mg/dL (0.70-1.30); Calcium 8.4 mg/dL (8.5-10.1); Chloride 104 mmol/L (98-107); Glucose 116 mg/dL (70-100); Potassium 4.2 mmol/L (3.5-5.1); Sodium 139 mmol/L (136-145)
[2018-09-19] MEDS: Enoxaparin 30 MG/0.3 ML SYR SC ×2 (08:58→19:45)
[2018-09-19] MEDS: Atenolol 25 MG TAB PO (08:59)
[2018-09-19] MEDS: Pantoprazole 40 MG TABCR PO (08:59)
--- NOTE | 2018-09-19 09:02 | PT.INTREAT ---
Date of service: 09/19/18 Time of Service: 09:02 PT Notes Inpatient Physical Therapy Treatment Note [facility] Date: 09/19/18 PRECAUTIONS: WBAT on R SUBJECTIVE: Jeff states that she had a difficult time getting comfortable last night, but feels better this morning. OBJECTIVE: PAIN: Patient c/o R knee pain with ther ex BED MOBILITY/TRANSFERS Sit-stand: S Stand-sit: S GAIT Assistive Device: FWW Weight bearing: WBAT on R Assist: CGA in a.m.; SBA in p.m. Distance: 30' x2 in a.m.; 60' x2 in p.m. Deviation: Seated rest x1 Static standing x2 minutes with FWW and SBA THEREX: Patient completed a LE strengthening and stabilization program, as per flow sheet. He was able to perform active SLR x10 without knee immobilizer. AROM of R knee is -10-89 degrees. Ends session with cryocuff to R knee. STAIRS: Up/down 3x4 and 2x6 using B rails and a step-to pattern with supervision. ASSESSMENT: Patient tolerated session with minimal c/o increased R knee pain with ther ex. He was able to tolerate a progression in gait distance with FWW support and SBA. He would benefit from continued gait and transfer training, as well as strengthening for improved mobility. PLAN: Continue with PT's POC TREATMENT CODE/TIME: Session 1: 35 minutes; [id number], [id number] Session 2: 20 minutes; [id number], [id number]
[2018-09-19] MEDS: Venlafaxine 37.5 MG CAPCR 75 MG PO (09:07)
--- NOTE | 2018-09-19 09:48 | W.PM.PROGNOT ---
Date of Service Date of service: 09/19/18 Time of Service: 09:48 Assessment and Plan (1) Status post right knee replacement: Current visit: Yes Status: Acute Status post right total knee arthroplasty doing well hemoglobin today is 13 g white blood cell count is okay electrolytes are okay he is voiding without need of a Ham catheter. He is taking p.o. well continue current postoperative course intraoperative findings reviewed with patient in detail Subjective Interval history since last seen: Jeff is feeling reasonably good. He is currently ambulating with PT as I speak with him. He can straight leg raise this morning. He feels that the pain in his right knee is less than in his left knee. Exam Extrem Other: He has no neurovascular deficits of his right foot. His color of his toes is normal. Objective Objective Clinical Data: Abnormal lab results 09/19/18 09/19/18 Range/Units 06:30 06:30 RBC 4.14 L (4.50-6.00) m/cumm Hgb 13.0 L (13.5-17.5) g/dL Hct 39.3 L (40.0-50.0) % BUN 28 H (7-18) mg/dL Glucose 116 H (70-100) mg/dL Calcium 8.4 L (8.5-10.1) mg/dL Vital Signs Temperature 98.2 F 09/19/18 07:20 Temperature Source Tympanic 09/19/18 07:20 Pulse 78 09/19/18 07:20 Pulse Rhythm Regular 09/18/18 20:17 Respiratory Rate 18 09/19/18 07:20 Respiratory Effort Non-Labored 09/18/18 20:17 Respiratory Depth Normal 09/18/18 20:17 Respiratory Pattern Normal 09/18/18 20:17 Blood Pressure 110/67 09/19/18 07:20 Pulse Oximetry 98 09/19/18 07:20 Respiratory End-tidal CO2 39 09/18/18 10:48 Oxygen Delivery Method Room Air 09/19/18 07:20 Oxygen Flow Rate 0 09/19/18 07:20 Pain Level 7 09/18/18 20:31 Comment 09/19/18 07:20 Intake & Output 09/18/18 09/18/18 09/19/18 11:59 23:59 11:59 Intake Total 950 / 2070 1120 / 2070 490 / 490 Output Total 47 / 472 425 / 472 400 / 400 Balance 903 / 1598 695 / 1598 90 / 90 Weight 244 lb 4.355 oz Intake: IV 950 / 1150 200 / 1150 250 / 250 Oral 920 / 920 240 / 240 Output: Urine 425 / 425 400 / 400 Estimated Blood Loss Other: Urine Color Light Toya Yellow Urine Appearance Clear Clear Urine Odor Normal Emesis Description None Voiding Methods Urinal Urinal Laboratory Results WBC 9.80 k/cumm (4.4-10.8) 09/19/18 06:30 RBC 4.14 m/cumm (4.50-6.00) L 09/19/18 06:30 Hgb 13.0 g/dL (13.5-17.5) L 09/19/18 06:30 Hct 39.3 % (40.0-50.0) L 09/19/18 06:30 MCV 94.9 fL (80-95) 09/19/18 06:30 MCH 31.4 pg (27.0-33.0) 09/19/18 06:30 MCHC 33.1 g/dL (32.0-36.0) 09/19/18 06:30 RDW 13.9 % (11.8-14.1) 09/19/18 06:30 Plt Count 162 x1000/uL (130-400) 09/19/18 06:30 MPV 8.8 fL (8.0-11.0) 09/19/18 06:30 Sodium 139 mmol/L (136-145) 09/19/18 06:30 Potassium 4.2 mmol/L (3.5-5.1) 09/19/18 06:30 Chloride 104 mmol/L (98-107) 09/19/18 06:30 Carbon Dioxide 24.9 mmol/L (21.0-32.0) 09/19/18 06:30 Anion Gap 10.1 mmol/L (3-11) 09/19/18 06:30 BUN 28 mg/dL (7-18) H 09/19/18 06:30 Creatinine 1.01 mg/dL (0.70-1.30) 09/19/18 06:30 Estimated GFR/1.73 m2 >= 60.00 (mL/min/1.73m2) 09/19/18 06:30 Glucose 116 mg/dL (70-100) H 09/19/18 06:30 Calcium 8.4 mg/dL (8.5-10.1) L 09/19/18 06:30
[2018-09-19] MEDS: POTASSIUM CHLORIDE/D5-0.9%NACL 1,000 ML 30 MEQ IV (10:11)
--- NOTE | 2018-09-19 13:17 | PHARADMIT ---
Addendum entered by Devin Salinas III 09/20/18 10:49: Pharmacy Note Subjective MD notes patient is doing well, continue working with PT. Objective VS-OK Pain:05/26 Labs-Good No BM yet Assessment Ancef completed, IV is out. Plan Fahad be able to shower later today. No major problems. Original Note: Admission Pharmacy Clinical Review right knee arthroplasty Code Status Full Code Current Weight 110.8 kg Renally Cleared and Narrow Therapeutic Index Meds Crcl ~80.0 mL/min current meds okay QTc Value / Action Taken n/a BP Control, Fever BP 115/73 afebrile Electrolytes reviewed within normal limits DVT Prophylaxis enoxaparin Opiate Usage / Scheduled Bowel Regimen Ordered prn/prn Plt/SCr for Heparin / Enoxaparin plt 162 SCr 1.01 INR for Warfarin n/a H/H stable, WBC/Bands h/h 13.0/39.3 wbc 9.80 Antibiotic appropriateness none Cultures and Sensitivities none Surgical ABX d/c within 24 hr yes, cefazolin discontinued DM control / Insulin Dosing BG 116 none Heart Failure (Check EF%) (ANILA's, B-Block, Diuretics) atenolol IV to PO Switch n/a Home Meds Reviewed yes Home Meds Not Ordered multivitamin Comments
[2018-09-19] MEDS: Docusate Sodium 100 MG CAP PO ×2 (14:35→19:44)
--- NOTE | 2018-09-19 15:09 | CHAPLAIN ---
Jeff was sitting up in his chair when I visited. He said this time his knee feels better than when he had his last knee surgery. He expects to go home tomorrow
--- NOTE | 2018-09-19 16:56 | PDOC.CMIN ---
Care Management Initial Assess REASON FOR HOSPITALIZATION:: Right Knee Arthroplasty PAST MEDICAL HISTORY/PAST SURGICAL HISTORY:: HTN, fracture of femur, kidney stone, obesity, colonoscopy, tonsillectomy, total knee replacement PREVIOUS FUNCTIONAL STATUS/SOCIAL/FAMILY SUPPORTS:: Jeff resides in [place] with his , Gaby. He is independent at baseline in the community. CURRENT FUNCTIONAL STATUS:: Jeff was lying in bed, visiting with his when CM entered. He shared no concerns and reported he was looking forward to watching the [employer] game. ADVANCE DIRECTIVES:: None on file at [facility]. Has patient been provided with information about the portal?: Yes Did the patient sign up for the portal?: Yes CODE STATUS:: Full Code INSURANCE COVERAGE / FINANCIAL ISSUES:: [facility] Application [employer]. [employer], [employer] CURRENT HOME/COMMUNITY SERVICES/EQUIPMENT:: No current services or equipment. PRIMARY CARE PHYSICIAN:: Garland Payan POTENTIAL DISCHARGE NEEDS:: PT evaluation, follow up appointments. PATIENT/FAMILY EDUCATION NEEDS:: Review of discharge instructions, discuss Ask Me Three. ANTICIPATED BARRIERS TO DISCHARGE:: None identified. TRANSPORTATION:: Via private vehicle with his , Gaby. PLAN:: Jeff will discharge home when ready per MD. He will follow up with Dr. Cabrera and his plan of care as prescribed. He will transport home via private vehicle with his , Gaby.
--- NOTE | 2018-09-19 17:15 | INITIAL_ITS ---
Care Management Initial Assess REASON FOR HOSPITALIZATION:: Right Knee Arthroplasty PAST MEDICAL HISTORY/PAST SURGICAL HISTORY:: HTN, fracture of femur, kidney stone, obesity, colonoscopy, tonsillectomy, total knee replacement PREVIOUS FUNCTIONAL STATUS/SOCIAL/FAMILY SUPPORTS:: Jeff resides in [place] with his , Gaby. He is independent at baseline in the community. CURRENT FUNCTIONAL STATUS:: Jeff was lying in bed, visiting with his when CM entered. He shared no concerns and reported he was looking forward to watching the [employer] game. ADVANCE DIRECTIVES:: None on file at [facility]. Has patient been provided with information about the portal?: Yes Did the patient sign up for the portal?: Yes CODE STATUS:: Full Code INSURANCE COVERAGE / FINANCIAL ISSUES:: [facility] Fl[employer]. Zily[employer], [employer] CURRENT HOME/COMMUNITY SERVICES/EQUIPMENT:: No current services or equipment. PRIMARY CARE PHYSICIAN:: Garland Payan POTENTIAL DISCHARGE NEEDS:: PT evaluation, follow up appointments. PATIENT/FAMILY EDUCATION NEEDS:: Review of discharge instructions, discuss Ask Me Three. ANTICIPATED BARRIERS TO DISCHARGE:: None identified. TRANSPORTATION:: Via private vehicle with his , Gaby. PLAN:: Jeff will discharge home when ready per MD. He will follow up with Dr. Cabrera and his plan of care as prescribed. He will transport home via private vehicle with his , Gaby.
[2018-09-19] MEDS: MORPHine 10 MG/ML VIAL IVP (22:03)
[2018-09-20] VITALS (10 sets, daily range): BP systolic 107–159; BP diastolic 68–84; PULSE 70–90; RESP 16–20; TEMP 36.6–37.7; O2SAT 92–99
[2018-09-20] MEDS: Acetaminophen 325 MG TAB 650 MG PO ×4 (01:24→23:33)
[2018-09-20] MEDS: oxyCODONE 5 MG TAB PO ×4 (01:24→23:26)
[2018-09-20 07:13] LABS: HGB 13.1 g/dL (13.5-17.5); Mean Corp. HGB Concentration 33.6 g/dL (32.0-36.0); Mean Corpuscular Hemoglobin 31.9 pg (27.0-33.0); Mean Corpuscular Volume 94.9 fL (80-95); Mean Platelet Volume 9.3 fL (8.0-11.0); Platelet Count 148 x1000/uL (130-400); RBC 4.11 m/cumm (4.50-6.00); RBC Distribution Width 13.8 % (11.8-14.1); White Blood Cell Count 9.49 k/cumm (4.4-10.8)
[2018-09-20 07:31] LABS: BUN 21 mg/dL (7-18); CREATININE 0.92 mg/dL (0.70-1.30); Calcium 8.6 mg/dL (8.5-10.1); Chloride 104 mmol/L (98-107); Glucose 101 mg/dL (70-100); Potassium 4.2 mmol/L (3.5-5.1); Sodium 137 mmol/L (136-145)
[2018-09-20] MEDS: Enoxaparin 30 MG/0.3 ML SYR SC ×2 (07:59→19:48)
[2018-09-20] MEDS: Venlafaxine 37.5 MG CAPCR 75 MG PO (08:00)
[2018-09-20] MEDS: Atenolol 25 MG TAB PO (08:00)
[2018-09-20] MEDS: Pantoprazole 40 MG TABCR PO (08:01)
[2018-09-20] MEDS: Docusate Sodium 100 MG CAP PO (08:26)
--- NOTE | 2018-09-20 09:26 | W.PM.PROGNOT ---
Date of Service Date of service: 09/20/18 Time of Service: 09:26 Assessment and Plan (1) Status post right knee replacement: Current visit: Yes Status: Acute Overall satisfactory postop progress following total knee arthroplasty the elevated temperature is of some concern but I am not overly worried about him to have the patient concentrate on incentive spirometry. He is going to take a shower this afternoon if he so desires. The wound may get wet with soap and water and will gently pat the ilan dry and leave it open to the ER if there is any drainage which I do not expect him to have he will cover that with a light gauze Subjective Interval history since last seen: Patient reports having significant discomfort last night around midnight while watching the [employer] game on television. I the use of morphine. He also elevated temperature spikes around midnight. One temperature spike was 103. He has no symptoms to suggest an upper respiratory tract infection he had no Ham catheter use therefore I do not suspect a UTI. He may have atelectasis from general anesthesia and he was a former smoker. Exam Extrem Other: His right knee incision has a benign appearance new sterile dressing is applied by there is no unusual swelling. His hemoglobin electrolytes white blood cell counts are all within normal limits today Objective Objective Clinical Data: Abnormal lab results 09/20/18 09/20/18 Range/Units 06:25 06:25 RBC 4.11 L (4.50-6.00) m/cumm Hgb 13.1 L (13.5-17.5) g/dL Hct 39.0 L (40.0-50.0) % BUN 21 H D (7-18) mg/dL Glucose 101 H (70-100) mg/dL Vital Signs Temperature 98.1 F 09/20/18 07:15 Temperature Source Skin 09/20/18 07:15 Pulse 71 09/20/18 07:15 Pulse Rhythm Regular 09/20/18 07:33 Respiratory Rate 16 09/20/18 07:15 Respiratory Effort 09/20/18 07:33 Respiratory Depth Normal 09/20/18 07:33 Respiratory Pattern Normal 09/20/18 07:33 Blood Pressure 117/73 09/20/18 07:15 Pulse Oximetry 99 09/20/18 07:15 Respiratory End-tidal CO2 39 09/18/18 10:48 Oxygen Delivery Method Room Air 09/20/18 07:15 Oxygen Flow Rate 0 09/20/18 07:15 Pain Level 3 09/20/18 08:00 Comment 09/20/18 07:15 Intake & Output 09/19/18 09/19/18 09/20/18 11:59 23:59 11:59 Intake Total 1077 / 1667 590 / 1667 837.5 / 837.5 Output Total 1000 / 1800 800 / 1800 750 / 750 Balance 77 / -133 -210 / -133 87.5 / 87.5 Intake: IV 477 / 477 687.5 / 687.5 Oral 600 / 1190 590 / 1190 150 / 150 Output: Urine 1000 / 1800 800 / 1800 750 / 750 Other: Urine Color Dark Toya Light Toya Dark Toya Demarest Urine Appearance Clear Clear Urine Odor Normal Voiding Methods Toilet Urinal Toilet Urinal Laboratory Results WBC 9.49 k/cumm (4.4-10.8) 09/20/18 06:25 RBC 4.11 m/cumm (4.50-6.00) L 09/20/18 06:25 Hgb 13.1 g/dL (13.5-17.5) L 09/20/18 06:25 Hct 39.0 % (40.0-50.0) L 09/20/18 06:25 MCV 94.9 fL (80-95) 09/20/18 06:25 MCH 31.9 pg (27.0-33.0) 09/20/18 06:25 MCHC 33.6 g/dL (32.0-36.0) 09/20/18 06:25 RDW 13.8 % (11.8-14.1) 09/20/18 06:25 Plt Count 148 x1000/uL (130-400) 09/20/18 06:25 MPV 9.3 fL (8.0-11.0) 09/20/18 06:25 Sodium 137 mmol/L (136-145) 09/20/18 06:25 Potassium 4.2 mmol/L (3.5-5.1) 09/20/18 06:25 Chloride 104 mmol/L (98-107) 09/20/18 06:25 Carbon Dioxide 25.0 mmol/L (21.0-32.0) 09/20/18 06:25 Anion Gap 8.0 mmol/L (3-11) 09/20/18 06:25 BUN 21 mg/dL (7-18) H D 09/20/18 06:25 Creatinine 0.92 mg/dL (0.70-1.30) 09/20/18 06:25 Estimated GFR/1.73 m2 >= 60.00 (mL/min/1.73m2) 09/20/18 06:25 Glucose 101 mg/dL (70-100) H 09/20/18 06:25 Calcium 8.6 mg/dL (8.5-10.1) 09/20/18 06:25
--- NOTE | 2018-09-20 09:56 | PT.INTREAT ---
Date of service: 09/20/18 Time of Service: 09:56 PT Notes 09/20/18 SUBJECTIVE: Pt stating he is a little woozy from getting morphine in the night. He is reporting minimal discomfort. He feels he needs to get up and move around. States he would like to go home if possible. OBJECTIVE: Supine in bed. Agreeable to PT treatment. TRANSFERS Supine to sit: I Sit to stand: S Stand to sit: S GAIT Device: FWW Weight bearing AT R Assist: SBA Distance: 125'+75' Deviation: Step through pattern. One sit rest break and two stand rest breaks. THEREX: Light LE strengthening, Muscle setting and ROM activities. Tolerates active SLR x 10 with extension lag noted. 10-85 degrees R knee ROM achieved. ASSESSMENT: Pt tolerates transfers and gait well with FWW. Minimal discomfort noted this morning. He is motivated to return home today if possible. PLAN: Continue current POC. Treatment time: 30 minutes [id number], [id number] Shante Alexander, ELOY
--- NOTE | 2018-09-20 12:58 | PDOC.CMPRO ---
Care Management Progress Note S/O-Met with Jeff today. He feels he is progressing well. Did have fever last night per MD. No change to overall plan. A-63 yo man admitted s/p R TKA. P-d/c home as per MD with plan for OP PT in [place]. He has family able to transport him to PT.
--- NOTE | 2018-09-20 13:17 | INDS_ITS ---
Date of service: 09/20/18 Time of Service: 12:40 PT Notes Date: 09/20/18 Referring Doctor: Dr. Cabrera PT Orders: PT CONSULT: right TKA 09/18/18. If patient is willing and comfortable, may be up to chair with walker. WBAT RLE. Patient s/p LTKA 6 years ago. Patient had a femoral nerve block and may have poor quad function today, so if he gets up keep knee immobilizer on. CPM and cryocuff protocols while in bed Precautions: fall, standard Treatment Dates: 09/18/18 - 09/20/18 Patient Profile/Admitting Diagnosis: Patient admitted s/p right TKA 09/18/18. He has participated in skilled PT intervention for 6 sessions over the past 3 days. PMHX: HTN Social History/Home Situation: Patient lives independently in private home. He reports 3 SANAM via his deck, then is able to stay on main level of home for the time being. He has assistance from family members at home. Equipment Owned/DME: FWW Subjective: Patient reports that he is feeling well. He states that he is very anxious to return home. His daughter is with him visiting at time of session. Objective: General Observation: Resting in bed with Adrian wrap and cryocuff to RLE. No lines. Mental Status: A&Ox3. Pain: well managed ROM: Right Upper Extremity: WFL Left Upper Extremity: WFL Right Lower Extremity: Knee motion -5 extension to 85 degrees flexion. Left Lower Extremity: WFL Strength: Right Upper Extremity: WFL Left Upper Extremity: WFL Right Lower Extremity: Patient functionally demonstrates SLR with significant extension lag, worsening with fatigue. Quads at least 3/5 in LAQ position. Left Lower Extremity: WFL Sensation: intact distally Bed Mobility/Transfers: supine-sit: independent with HOB flat sit-stand: independent with HOB flat. Patient hooks left foot under right calf to assist RLE into bed. stand-sit: independent bed-chair: supervision with FWW Gait: Patient ambulates 150' with FWW and supervision. He requires cues for improved heel strike. He is able to initiate step-through pattern, although with shortened stride length on the left compared to the right. Stairs: patient manages therapeutic stairs 4x3, 6x2 with bilat rails and supervision only. Balance: Static Sitting: Normal Dynamic Sitting: normal Static Standing: good Dynamic Standing: fair Special Tests: Mobility Limitations Standardized Measure [facility] AM-PAC 6 clicks Basic Mobility Inpatient Short Form: Raw Score: 23 CMS Score: 11% deficit Treatment: Today's session consisted of gait and transfer training, as noted on flowsheet. Patient was instructed in therex as noted on flowsheet, with encouragement for max effort with Q.S. and SLR. He has instruced in passive extension hangs in both seated and supine, and completed a 3 minute hang in supine position with ankle propped with pillow. He was instructed in HEP consisting of ankle pumps, Q.S., SLR, heel slides, glute sets, each for 10 reps, 3x/day. Patient does not have his pre-op packet with him, but verbalizes good understanding. Assessment: Patient is a 63 year old male referred to physical therapy services with the diagnosis of status post TKA. Patient has participated in 6 PT sessions over the past 3 days, and has made excellent gains in mobility and safety. He is safe for transition back home once medically cleared, with recommendation of outpatient PT for ongoing strengthening and mobilization. Goals: Goals X1 week 1. Supine-Sit : supervision (MET) 2. Sit-Supine : supervision(MET) 3. Sit-Stand : supervision(MET) 4. Stand-Sit : supervision(MET) 5. Bed-Chair : supervision with FWW(MET) 6. Chair-Bed : supervision with FWW(MET) 7. Gait : supervision with FWW x 150'(MET) 8. Stairs : ascend and descend 3 steps with single rail and supervision(MET) 9. Independent with home exercise program (MET) Plan of Care/Treatment Plan: D/C from PT services in acute care setting. DISCHARGE RECOMMENDATIONS: Home with outpatient PT. No equipment needs TREATMENT CODE/TIME: 12:40-1:10 ([id number], [id number]) Marleen Toledo, PT, DPT [facility]
[2018-09-21 04:35] VITALS: BP 113/84; PULSE 91; RESP 18; TEMP 37.5; O2SAT 96
[2018-09-21 07:35] VITALS: BP 131/80; PULSE 81; RESP 19; TEMP 37.1; O2SAT 95
[2018-09-21] MEDS: Docusate Sodium 100 MG CAP PO (07:40)
[2018-09-21] MEDS: Pantoprazole 40 MG TABCR PO (07:40)
[2018-09-21] MEDS: Enoxaparin 30 MG/0.3 ML SYR SC (07:40)
[2018-09-21] MEDS: Acetaminophen 325 MG TAB 650 MG PO (07:41)
[2018-09-21] MEDS: Venlafaxine 37.5 MG CAPCR 75 MG PO (07:41)
[2018-09-21] MEDS: Atenolol 25 MG TAB PO (07:41)
[2018-09-21] MEDS: Milk of Magnesia 30 ML CUP PO (07:42)
--- NOTE | 2018-09-21 07:47 | PGE_ITS ---
Date of Service Date of service: 09/21/18 Time of Service: 07:44 Assessment and Plan (1) Status post right knee replacement: Current visit: Yes Status: Acute Status post right total knee arthroplasty with no obvious complications. Mildly elevated temperature at nighttime shows improvement. This is a very common phenomenon following hip knee replacement surgery and explained this both to the patient and his . He is anxious to go home and allow him go home today after a.m. physical therapy. He will be taking aspirin 81 mg twice daily to prevent DVT. Follow-up with me in the office in a week's time. He gets his medications through our pharmacy and I will prescribe [place] 5?3 25 1-2 every 4 hours. 18 total tablets dispensed Subjective Interval history since last seen: Feeling well had a very good night. Did not have any significant discomfort requiring any kind of parenteral narcotic last night. Did have a mildly elevated temperature last night and this morning its 99.6. Exam Extrem Other: Right knee exam shows mild to moderate swelling. Slight erythema. No sign of purulent drainage. The patient was able to shower yesterday and post shower had a slight amount of drainage and gauze was applied this morning there is no drainage. Was on the bandage was what constitutes about 3 to 4 drops of blood. He has no neurovascular deficits of his right foot. He is mild swelling of his leg and calf which is expected. His RENETTA stockings will go on today Objective Objective Clinical Data: Vital Signs Temperature 99.5 F 09/21/18 04:35 Temperature Source Tympanic 09/21/18 04:35 Pulse 91 H 09/21/18 04:35 Pulse Rhythm Regular 09/20/18 19:45 Respiratory Rate 18 09/21/18 04:35 Respiratory Effort 09/20/18 19:45 Respiratory Depth Normal 09/20/18 19:45 Respiratory Pattern Normal 09/20/18 19:45 Blood Pressure 113/84 09/21/18 04:35 Pulse Oximetry 96 09/21/18 04:35 Respiratory End-tidal CO2 39 09/18/18 10:48 Oxygen Delivery Method Room Air 09/21/18 04:35 Oxygen Flow Rate 0 09/21/18 04:35 Pain Level 4 09/21/18 07:41 Comment 09/20/18 07:15 Intake & Output 09/20/18 09/20/18 09/21/18 11:59 23:59 11:59 Intake Total 1197.5 / 1437.5 240 / 1437.5 Output Total 750 / 0 1320 / 2070 950 / 950 Balance 447.5 / -632.5 -1080 / -632.5 -950 / -950 Intake: IV 687.5 / 687.5 Oral 510 / 750 240 / 750 Output: Urine 750 / 2070 1320 / 2070 950 / 950 Other: Urine Color Dark Toya Yellow Yellow Urine Appearance Clear Clear Urine Odor None None Voiding Methods Toilet Urinal Urinal Urinal Laboratory Results WBC 9.49 k/cumm (4.4-10.8) 09/20/18 06:25 RBC 4.11 m/cumm (4.50-6.00) L 09/20/18 06:25 Hgb 13.1 g/dL (13.5-17.5) L 09/20/18 06:25 Hct 39.0 % (40.0-50.0) L 09/20/18 06:25 MCV 94.9 fL (80-95) 09/20/18 06:25 MCH 31.9 pg (27.0-33.0) 09/20/18 06:25 MCHC 33.6 g/dL (32.0-36.0) 09/20/18 06:25 RDW 13.8 % (11.8-14.1) 09/20/18 06:25 Plt Count 148 x1000/uL (130-400) 09/20/18 06:25 MPV 9.3 fL (8.0-11.0) 09/20/18 06:25 Sodium 137 mmol/L (136-145) 09/20/18 06:25 Potassium 4.2 mmol/L (3.5-5.1) 09/20/18 06:25 Chloride 104 mmol/L (98-107) 09/20/18 06:25 Carbon Dioxide 25.0 mmol/L (21.0-32.0) 09/20/18 06:25 Anion Gap 8.0 mmol/L (3-11) 09/20/18 06:25 BUN 21 mg/dL (7-18) H D 09/20/18 06:25 Creatinine 0.92 mg/dL (0.70-1.30) 09/20/18 06:25 Estimated GFR/1.73 m2 >= 60.00 (mL/min/1.73m2) 09/20/18 06:25 Glucose 101 mg/dL (70-100) H 09/20/18 06:25 Calcium 8.6 mg/dL (8.5-10.1) 09/20/18 06:25
--- NOTE | 2018-09-21 07:48 | W.PM.DS.N ---
Date of service: 09/21/18 Time of Service: 07:48 DS: Diagnosis Discharge Diagnosis (1) Status post right knee replacement: Status: Acute Discharge Plan Disposition Patient Disposition: HOME Condition: Improving Discharge Details Reason For Visit: RIGHT KNEE ARTHROPLASTY Admit Date/Time: 09/18/18 05:59 Admit Provider: Mario Cabrera Attending Provider: Mario Cabrera Primary Care Provider: Garland Pyaan Hospital Course Hospital Course: Patient was admitted postoperatively on 09/18/2018 for right total knee arthroplasty postoperative care. His postoperative course was essentially unremarkable. He was maintained on prophylactic intravenous antibiotics consisting of Ancef 1 g every 6 hours for 24 hours. He was started on Lovenox prophylaxis 30 mg subcu twice daily. He had serial hemoglobin and hematocrit studies as well as basic metabolic profile showing no significant problems. His bandage was changed on 09/20/2018 and his wound had a benign appearance he was up to the shower at that point he could straight leg raise within 24 hours after surgery. This was always secondary to the beneficial effects of his femoral nerve blockade. He had CPM and Cryo/Cuff protocols. He will have short leg RENETTA stockings post discharge to minimize risk of DVT he will go on aspirin 81 mg twice daily prophylaxis to prevent blood clot. Home Meds and New Rx's Prescriptions: No Action multivitamin 1 EACH capsule 1 ea PO DAILY RF: 0 atenolol 25 mg Tablet 25 mg PO DAILY RF: 0 venlafaxine [Effexor XR] 75 mg Capsule,Extended Release 24hr 75 mg PO DAILY RF: 0 Discharge Instructions Instructions: Knee Replacement (DC) Additional Instructions: Use your new knee. You may place her full weight upon it usual walker for balance and prevent falls. Performing her exercises as prescribed to you by physical therapy. Use your Cryo/Cuff before and after your exercises to minimize pain and swelling. Keep your right foot elevated above heart level as much as possible to minimize swelling. Use your elastic stockings during the day to prevent blood clots. They may be off at nighttime for sleeping. Using baby powder will assist in placing them on. Take your regular medications as before. Take a baby aspirin, 81 mg, twice daily to prevent blood clots. Take Tylenol, Advil or Aleve for milder pain. Tylenol may be taken at the same time as Advil or at the same time as Aleve as they are metabolized differently and are not cross toxic. For more serious pain take [place] 5-325 mg 1-2 every 4 hours. G[place] contains hydrocodone. [facility] regulations limit the amount of [place] that can be prescribed to 18 tablets. Follow-up with Dr. Cabrera in about 1 week for staple removal and review of x-rays. elastic stockings during the day they may be off at nighttime for sleeping using baby baby powder will assist in placing them on. You may get your wound wet in the shower with soap and water this is best accomplished by placing a chair or stool in the shower to rest upon gently pat the ilan dry and leave open to the air if there is some drainage on the incision apply some gauze. Follow-up with Dr. Cabrera in approximately 1 week for staple removal. Performing her exercises on your own at home as instructed with PT as you make progress with doing a monitoring at home we will transition you to outpatient physical therapy. Take Tylenol Advil or Aleve for milder pain Tylenol may be taken at the same time as Advil or at the same time as Aleve as they are metabolized differently and are not cross Marie for serious pain take [place] 5/325 mg 1-2 every 4 hours. [facility] regulations limit the amount of hydrocodone to 18 tablets Stand Alone Forms: Nursing Discharge Form Referrals: Mario Cabrera MD [ [facility] STAFF PHYSICIAN] - Activity:: Activity as Tolerated Equipment/Supplies:: Walker Diet:: As Tolerated Discharge Orders Discharge Orders: Discharge Order (Routine); Ordered 09/21/18 Ordered By: Mario Cabrera DS: Data Vitals/I&O Vitals and I&O: Vital Signs Temperature 99.5 F 09/21/18 04:35 Temperature Source Tympanic 09/21/18 04:35 Pulse 91 H 09/21/18 04:35 Pulse Rhythm Regular 09/20/18 19:45 Respiratory Rate 18 09/21/18 04:35 Respiratory Effort 09/20/18 19:45 Respiratory Depth Normal 09/20/18 19:45 Respiratory Pattern Normal 09/20/18 19:45 Blood Pressure 113/84 09/21/18 04:35 Pulse Oximetry 96 09/21/18 04:35 Respiratory End-tidal CO2 39 09/18/18 10:48 Oxygen Delivery Method Room Air 09/21/18 04:35 Oxygen Flow Rate 0 09/21/18 04:35 Pain Level 4 09/21/18 07:41 Comment 09/20/18 07:15 Intake & Output 09/20/18 09/20/18 09/21/18 11:59 23:59 11:59 Intake Total 1197.5 / 1437.5 240 / 1437.5 Output Total 750 / 2070 1320 / 2070 950 / 950 Balance 447.5 / -632.5 -1080 / -632.5 -950 / -950 Intake: IV 687.5 / 687.5 Oral 510 / 750 240 / 750 Output: Urine 750 / 2070 1320 / 2070 950 / 950 Other: Urine Color Dark Toya Yellow Yellow Urine Appearance Clear Clear Urine Odor None None Voiding Methods Toilet Urinal Urinal Urinal PFSH Medical History Hx of fracture of femur (Acute) Kidney stone (Chronic) HTN (hypertension) Obesity Surgical History Hx of total knee replacement (Acute) Hx of tonsillectomy (Chronic) Colonoscopy - IV Sedation Colonoscopy - MAC (06/25/17) Social History Smoking/Tobacco Use Status: Former Tobacco Use Drug use: Never Do you feel safe in your relationship?: Yes
[2018-09-21 07:55] VITALS: O2SAT 95
--- NOTE | 2018-09-21 08:05 | DSE_ITS ---
Date of service: 09/21/18 Time of Service: 07:48 DS: Diagnosis Discharge Diagnosis (1) Status post right knee replacement: Status: Acute Discharge Plan Disposition Patient Disposition: HOME Condition: Improving Discharge Details Reason For Visit: RIGHT KNEE ARTHROPLASTY Admit Date/Time: 09/18/18 05:59 Admit Provider: Mario Caberra Attending Provider: Mario Cabrera Primary Care Provider: Garland Payan Hospital Course Hospital Course: Patient was admitted postoperatively on 09/18/2018 for right total knee arthroplasty postoperative care. His postoperative course was essentially unremarkable. He was maintained on prophylactic intravenous antibiotics consisting of Ancef 1 g every 6 hours for 24 hours. He was started on Lovenox prophylaxis 30 mg subcu twice daily. He had serial hemoglobin and hematocrit studies as well as basic metabolic profile showing no significant problems. His bandage was changed on 09/20/2018 and his wound had a benign appearance he was up to the shower at that point he could straight leg raise within 24 hours after surgery. This was always secondary to the beneficial effects of his femoral nerve blockade. He had CPM and Cryo/Cuff protocols. He will have short leg RENETTA stockings post discharge to minimize risk of DVT he will go on aspirin 81 mg twice daily prophylaxis to prevent blood clot. Home Meds and New Rx's Prescriptions: No Action multivitamin 1 EACH capsule 1 ea PO DAILY RF: 0 atenolol 25 mg Tablet 25 mg PO DAILY RF: 0 venlafaxine [Effexor XR] 75 mg Capsule,Extended Release 24hr 75 mg PO DAILY RF: 0 Discharge Instructions Instructions: Knee Replacement (DC) Additional Instructions: Use your new knee. You may place her full weight upon it usual walker for balance and prevent falls. Performing her exercises as prescribed to you by physical therapy. Use your Cryo/Cuff before and after your exercises to minimize pain and swelling. Keep your right foot elevated above heart level as much as possible to minimize swelling. Use your elastic stockings during the day to prevent blood clots. They may be off at nighttime for sleeping. Using baby powder will assist in p lacing them on. Take your regular medications as before. Take a baby aspirin, 81 mg, twice daily to prevent blood clots. Take Tylenol, Advil or Aleve for milder pain. Tylenol may be taken at the same time as Advil or at the same time as Aleve as they are metabolized differently and are not cross toxic. For more serious pain take [place] 5-325 mg 1-2 every 4 hours. [place] contains hydrocodone. [facility] regulations limit the amount of [place] that can be prescribed to 18 tablets. Follow-up with Dr. Cabrera in about 1 week for staple removal and review of x-rays. elastic stockings during the day they may be off at nighttime for sleeping using baby baby powder will assist in placing them on. You may get your wound wet in the shower with soap and water this is best accomplished by placing a chair or stool in the shower to rest upon gently pat the ilan dry and leave open to the air if there is some drainage on the incision apply some gauze. Fol low-up with Dr. Cabrera in approximately 1 week for staple removal. Performing her exercises on your own at home as instructed with PT as you make progress with doing a monitoring at home we will transition you to outpatient physical therapy. Take Tylenol Advil or Aleve for milder pain Tylenol may be taken at the same time as Advil or at the same time as Aleve as they are metabolized differently and are not cross Marie for serious pain take [place] 5/325 mg 1-2 every 4 hours. [facility] regulations limit the amount of hydrocodone to 18 tablets Stand Alone Forms: Nursing Discharge Form Referrals: Mario Cabrera MD [ [facility] STAFF PHYSICIAN] - Activity:: Activity as Tolerated Equipment/Supplies:: Walker Diet:: As Tolerated Discharge Orders Discharge Orders: Discharge Order (Routine); Ordered 09/21/18 Ordered By: Mario Cabrera DS: Data Vitals/I&O Vitals and I&O: Vital Signs Temperature 99.5 F 09/21/18 04:35 Temperature Source Tympanic 09/21/18 04:35 Pulse 91 H 09/21/18 04:35 Pulse Rhythm Regular 09/20/18 19:45 Respiratory Rate 18 09/21/18 04:35 Respiratory Effort 09/20/18 19:45 Respiratory Depth Normal 09/20/18 19:45 Respiratory Pattern Normal 09/20/18 19:45 Blood Pressure 113/84 09/21/18 04:35 Pulse Oximetry 96 09/21/18 04:35 Respiratory End-tidal CO2 39 09/18/18 10:48 Oxygen Delivery Method Room Air 09/21/18 04:35 Oxygen Flow Rate 0 09/21/18 04:35 Pain Level 4 09/21/18 07:41 Comment 09/20/18 07:15 Intake & Output 09/20/18 09/20/18 09/21/18 11:59 23:59 11:59 Intake Total 1197.5 / 1437.5 240 / 1437.5 Output Total 750 / 2070 1320 / 2070 950 / 950 Balance 447.5 / -632.5 -1080 / -632.5 -950 / -950 Intake: IV 687.5 / 687.5 Oral 510 / 750 240 / 750 Output: Urine 750 / 2070 1320 / 2070 950 / 950 Other: Urine Color Dark [place]a Yellow Yellow Urine Appearance Clear Clear Urine Odor None None Voiding Methods Toilet Urinal Urinal Urinal PFSH Medical History Hx of fracture of femur (Acute) Kidney stone (Chronic) HTN (hypertension) Obesity Surgical History Hx of total knee replacement (Acute) Hx of tonsillectomy (Chronic) Colonoscopy - IV Sedation Colonoscopy - MAC (06/25/17) Social History Smoking/Tobacco Use Status: Former Tobacco Use Drug use: Never Do you feel safe in your relationship?: Yes
--- NOTE | 2018-09-21 08:15 | W.PM.DS.N ---
DS: Diagnosis Discharge Diagnosis (1) Status post right knee replacement: Status: Acute Discharge Plan Disposition Patient Disposition: HOME Condition: Improving Discharge Details Reason For Visit: RIGHT KNEE ARTHROPLASTY Admit Date/Time: 09/18/18 05:59 Admit Provider: Mario Cabrera Attending Provider: Mario Cabrera Primary Care Provider: Garland Payan Hospital Course Hospital Course: Patient was admitted postoperatively on 09/18/2018 for right total knee arthroplasty postoperative care. His postoperative course was essentially unremarkable. He was maintained on prophylactic intravenous antibiotics consisting of Ancef 1 g every 6 hours for 24 hours. He was started on Lovenox prophylaxis 30 mg subcu twice daily. He had serial hemoglobin and hematocrit studies as well as basic metabolic profile showing no significant problems. His bandage was changed on 09/20/2018 and his wound had a benign appearance he was up to the shower at that point he could straight leg raise within 24 hours after surgery. This was always secondary to the beneficial effects of his femoral nerve blockade. He had CPM and Cryo/Cuff protocols. He will have short leg RENETTA stockings post discharge to minimize risk of DVT he will go on aspirin 81 mg twice daily prophylaxis to prevent blood clot. Home Meds and New Rx's Prescriptions: No Action multivitamin 1 EACH capsule 1 ea PO DAILY RF: 0 atenolol 25 mg Tablet 25 mg PO DAILY RF: 0 venlafaxine [Effexor XR] 75 mg Capsule,Extended Release 24hr 75 mg PO DAILY RF: 0 Discharge Instructions Instructions: Knee Replacement (DC) Additional Instructions: Use your new knee. You may place her full weight upon it usual walker for balance and prevent falls. Performing her exercises as prescribed to you by physical therapy. Use your Cryo/Cuff before and after your exercises to minimize pain and swelling. Keep your right foot elevated above heart level as much as possible to minimize swelling. Use your elastic stockings during the day to prevent blood clots. They may be off at nighttime for sleeping. Using baby powder will assist in placing them on. Take your regular medications as before. Take a baby aspirin, 81 mg, twice daily to prevent blood clots. Take Tylenol, Advil or Aleve for milder pain. Tylenol may be taken at the same time as Advil or at the same time as Aleve as they are metabolized differently and are not cross toxic. For more serious pain take [place] 5-325 mg 1-2 every 4 hours. [place] contains hydrocodone. [facility] regulations limit the amount of [place] that can be prescribed to 18 tablets. Follow-up with Dr. Cabrera in about 1 week for staple removal and review of x-rays. elastic stockings during the day they may be off at nighttime for sleeping using baby baby powder will assist in placing them on. You may get your wound wet in the shower with soap and water this is best accomplished by placing a chair or stool in the shower to rest upon gently pat the ilan dry and leave open to the air if there is some drainage on the incision apply some gauze. Follow-up with Dr. Cabrera in approximately 1 week for staple removal. Performing her exercises on your own at home as instructed with PT as you make progress with doing a monitoring at home we will transition you to outpatient physical therapy. Take Tylenol Advil or Aleve for milder pain Tylenol may be taken at the same time as Advil or at the same time as Aleve as they are metabolized differently and are not cross Marie for serious pain take [place] 5/325 mg 1-2 every 4 hours. [facility] regulations limit the amount of hydrocodone to 18 tablets Stand Alone Forms: Nursing Discharge Form Referrals: Mario Cabrera MD [ [facility] STAFF PHYSICIAN] - Activity:: Activity as Tolerated Equipment/Supplies:: Walker Diet:: As Tolerated Discharge Orders Discharge Orders: Discharge Order (Routine); Ordered 09/21/18 Ordered By: Mario Cabrera Discharge Data Discharge Date/Time-TO BE ENTERED AT DEPARTURE: 09/21/18 15:05 DS: Data Vitals/I&O Vitals and I&O: Vital Signs Temperature 99.5 F 09/21/18 04:35 Temperature Source Tympanic 09/21/18 04:35 Pulse 91 H 09/21/18 04:35 Pulse Rhythm Regular 09/20/18 19:45 Respiratory Rate 18 09/21/18 04:35 Respiratory Effort 09/20/18 19:45 Respiratory Depth Normal 09/20/18 19:45 Respiratory Pattern Normal 09/20/18 19:45 Blood Pressure 113/84 09/21/18 04:35 Pulse Oximetry 96 09/21/18 04:35 Respiratory End-tidal CO2 39 09/18/18 10:48 Oxygen Delivery Method Room Air 09/21/18 04:35 Oxygen Flow Rate 0 09/21/18 04:35 Pain Level 4 09/21/18 07:41 Comment 09/20/18 07:15 Intake & Output 09/20/18 09/20/18 09/21/18 11:59 23:59 11:59 Intake Total 1197.5 / 1437.5 240 / 1437.5 Output Total 750 / 2070 1320 / 2070 950 / 950 Balance 447.5 / -632.5 -1080 / -632.5 -950 / -950 Intake: IV 687.5 / 687.5 Oral 510 / 750 240 / 750 Output: Urine 750 / 2070 1320 / 2070 950 / 950 Other: Urine Color Dark Toya Yellow Yellow Urine Appearance Clear Clear Urine Odor None None Voiding Methods Toilet Urinal Urinal Urinal PFSH Medical History Hx of fracture of femur (Acute) Kidney stone (Chronic) HTN (hypertension) Obesity Surgical History Hx of total knee replacement (Acute) Hx of tonsillectomy (Chronic) Colonoscopy - IV Sedation Colonoscopy - MAC (06/25/17) Social History Smoking/Tobacco Use Status: Former Tobacco Use Drug use: Never Do you feel safe in your relationship?: Yes
--- NOTE | 2018-09-21 10:22 | PDOC.CMDIS ---
LACE Index Scoring Tool - Questions: Length of Stay (in days): 3 Acuity (Admit via E.D.?): No E.D. Visits: 1 - Answers: Total Score: 4 Risk of Readmission: Low Risk Care Management Discharge Reason for Hospitalization: Right Knee Arthroplasty Discharge Plan: Jeff will return home today. He would prefer OP PT and will make arrangements after his follow up visit with Dr. Cabrera. Gaby will transpot home today by car. He does not need any new equipment or services. Patient/Family Education Needs: Discharge instructions and follow up appointments.
[2018-09-21] MEDS: HYDROcodone 5/Acetaminophen 325 TAB PO (14:52)
--- NOTE | 2018-09-25 08:10 | DSE_ITS ---
DS: Diagnosis Discharge Diagnosis (1) Status post right knee replacement: Status: Acute Discharge Plan Disposition Patient Disposition: HOME Condition: Improving Discharge Details Reason For Visit: RIGHT KNEE ARTHROPLASTY Admit Date/Time: 09/18/18 05:59 Admit Provider: Mario Cabrera Attending Provider: Mario Cabrera Primary Care Provider: Garland Payan Hospital Course Hospital Course: Patient was admitted postoperatively on 09/18/2018 for right total knee arthroplasty postoperative care. His postoperative course was essentially unremarkable. He was maintained on prophylactic intravenous antibiotics consisting of Ancef 1 g every 6 hours for 24 hours. He was started on Lovenox prophylaxis 30 mg subcu twice daily. He had serial hemoglobin and hematocrit studies as well as basic metabolic profile showing no significant problems. His bandage was changed on 09/20/2018 and his wound had a benign appearance he was up to the shower at that point he could straight leg raise within 24 hours after surgery. This was always secondary to the beneficial effects of his femoral nerve blockade. He had CPM and Cryo/Cuff protocols. He will have short leg RENETTA stockings post discharge to minimize risk of DVT he will go on aspirin 81 mg twice daily prophylaxis to prevent blood clot. Home Meds and New Rx's Prescriptions: No Action multivitamin 1 EACH capsule 1 ea PO DAILY RF: 0 atenolol 25 mg Tablet 25 mg PO DAILY RF: 0 venlafaxine [Effexor XR] 75 mg Capsule,Extended Release 24hr 75 mg PO DAILY RF: 0 Discharge Instructions Instructions: Knee Replacement (DC) Additional Instructions: Use your new knee. You may place her full weight upon it usual walker for balance and prevent falls. Performing her exercises as prescribed to you by physical therapy. Use your Cryo/Cuff before and after your exercises to minimize pain and swelling. Keep your right foot elevated above heart level as much as possible to minimize swelling. Use your elastic stockings during the day to prevent blood clots. They may be off at nighttime for sleeping. Using baby powder will assist in placing them on. Take your regular medications as before. Take a baby aspirin, 81 mg, twice daily to prevent blood clots. Take Tylenol, Advil or Aleve for milder pain. Tylenol may be taken at the same time as Advil or at the same time as Aleve as they are metabolized differently and are not cross toxic. For more serious pain take Arvada 5-325 mg 1-2 every 4 hours. Arvada contains hydrocodone. [facility] regulations limit the amount of Arvada that can be prescribed to 18 tablets. Follow-up with Dr. Cabrera in about 1 week for staple removal and review of x-rays. elastic stockings during the day they may be off at nighttime for sleeping using baby baby powder will assist in placing them on. You may get your wound wet in the shower with soap and water this is best accomplished by placing a chair or stool in the shower to rest upon gently pat the ilan dry and leave open to the air if there is some drainage on the incision apply some gauze. Follow-up with Dr. Cabrera in approximately 1 week for staple removal. Performing her exercises on your own at home as instructed with PT as you make progress with doing a monitoring at home we will transition you to outpatient physical therapy. Take Tylenol Advil or Aleve for milder pain Tylenol may be taken at the same time as Advil or at the same time as Aleve as they are metabolized differently and are not cross Marie for serious pain take Arvada 5/325 mg 1-2 every 4 hours. [facility] regulations limit the amount of hydrocodone to 18 tablets Stand Alone Forms: Nursing Discharge Form Referrals: Mario Cabrera MD [ [facility] STAFF PHYSICIAN] - Activity:: Activity as Tolerated Equipment/Supplies:: Walker Diet:: As Tolerated Discharge Orders Discharge Orders: Discharge Order (Routine); Ordered 09/21/18 Ordered By: Mario Cabrera Discharge Data Discharge Date/Time-TO BE ENTERED AT DEPARTURE: 09/21/18 15:05 DS: Data Vitals/I&O Vitals and I&O: Vital Signs Temperature 99.5 F 09/21/18 04:35 Temperature Source Tympanic 09/21/18 04:35 Pulse 91 H 09/21/18 04:35 Pulse Rhythm Regular 09/20/18 19:45 Respiratory Rate 18 09/21/18 04:35 Respiratory Effort 09/20/18 19:45 Respiratory Depth Normal 09/20/18 19:45 Respiratory Pattern Normal 09/20/18 19:45 Blood Pressure 113/84 09/21/18 04:35 Pulse Oximetry 96 09/21/18 04:35 Respiratory End-tidal CO2 39 09/18/18 10:48 Oxygen Delivery Method Room Air 09/21/18 04:35 Oxygen Flow Rate 0 09/21/18 04:35 Pain Level 4 09/21/18 07:41 Comment 09/20/18 07:15 Intake & Output 09/20/18 09/20/18 09/21/18 11:59 23:59 11:59 Intake Total 1197.5 / 1437.5 240 / 1437.5 Output Total 750 / 2070 1320 / 2070 950 / 950 Balance 447.5 / -632.5 -1080 / -632.5 -950 / -950 Intake: IV 687.5 / 687.5 Oral 510 / 750 240 / 750 Output: Urine 750 / 2070 1320 / 2070 950 / 950 Other: Urine Color Dark Toya Yellow Yellow Urine Appearance Clear Clear Urine Odor None None Voiding Methods Toilet Urinal Urinal Urinal PFSH Medical History Hx of fracture of femur (Acute) Kidney stone (Chronic) HTN (hypertension) Obesity Surgical History Hx of total knee replacement (Acute) Hx of tonsillectomy (Chronic) Colonoscopy - IV Sedation Colonoscopy - MAC (06/25/17) Social History Smoking/Tobacco Use Status: Former Tobacco Use Drug use: Never Do you feel safe in your relationship?: Yes
== END 2018-09-21 15:05 | disposition home or self-care (01) | DRG 470 ==
LOC: PDS 05:59 → MS 10:31
PROVIDERS: Admitting Provider Orthopaedic Surgery; PCP General Practice; Visit Provider Orthopaedic Surgery
PROC: 0SRC0J9 Replacement of Right Knee Joint with Synthetic Substitute, Cemented, Open Approach (ICD-10-PCS; CPT 27447; principal; 2018-09-18 07:30)
DX: M17.11 Unilateral primary osteoarthritis, right knee (principal); M21.161 Varus deformity, not elsewhere classified, right knee; M24.561 Contracture, right knee; M25.561 Pain in right knee; Z96.651 Presence of right artificial knee joint; M22.41 Chondromalacia patellae, right knee; I10 Essential (primary) hypertension; E66.9 Obesity, unspecified; Z96.652 Presence of left artificial knee joint; G89.18 Other acute postprocedural pain; Z87.891 Personal history of nicotine dependence
CPT/HCPCS: 27447; 36415; 76942; 80048; 85027; 97110; 97161; 97530; NC; 73560; J0690; J1100; J1650; J1885; J2250; J2270; J2405; L1830

== ENCOUNTER 2018-12-12 00:36 | Outpatient (CLI) | payer OTHER, SELFPAY ==
--- NOTE | 2018-12-12 15:25 | DI.US_ITS ---
SYMPTOM/DIAGNOSIS: MONITOR STONES N20.0 RENAL ULTRASOUND: Comparison is made with 21 May 2018. The right kidney measures 12.2 cm in length. Multiple nonobstructing stones are seen. There is a stone at the superior pole measuring 1 cm. A 1.2 cm stone is seen near the inferior pole. The left kidney measures 11.9 cm A stone is seen in the mid left kidney measuring 1 cm. No hydronephrosis or perinephric collections are seen. The pre-void bladder volume measured 66 cc. Both ureteral jets were visualized. No bladder calcifications or masses are seen. There is no post void residual. IMPRESSION: Stable appearance of bilateral nonobstructing renal calculi.
== END 2018-12-12 00:56 ==
PROVIDERS: Visit Provider Urology
DX: N20.0 Calculus of kidney (principal)
CPT/HCPCS: 76770

== ENCOUNTER 2019-03-11 09:01 | Outpatient (CLI) | payer OTHER, SELFPAY ==
--- NOTE | 2019-03-11 09:54 | DI.RAD_ITS ---
EXAM: XR ABDOMEN FLAT PLATE INDICATION: flank pain with hx of kidney stones, Z87.442 hx urinary calculi. COMPARISON: CT renal colic wo from 04/04/2018 TECHNIQUE: 2D digital imaging was performed. FINDINGS: An 8 millimeter calcification projects near the lower pole of the right kidney. There is a question of a smaller stone measuring 6 millimeters in the mid right kidney. Two small stones are seen near t he upper pole of the left kidney. There is a 7 millimeter stone near the lower pole of the left kidn ey. There is a calcification adjacent to the right L3 transverse process measuring 8 millimeters in length. This could represent a stone in the upper right ureter. No stones are seen in the region of the bladder. Dystrophic calcifications are noted above the right greater trochanter. IMPRESSION: Bilateral nephrolithiasis.
== END 2019-03-11 09:21 ==
PROVIDERS: Visit Provider Nurse Practitioner Gerontology
DX: R10.31 Right lower quadrant pain (principal); Z87.442 Personal history of urinary calculi; N20.0 Calculus of kidney
CPT/HCPCS: 74018

== ENCOUNTER 2019-03-17 09:31 | Day surgery (SDC) | payer OTHER, SELFPAY ==
[2019-03-17] VITALS (7 sets, daily range): BP systolic 130–155; BP diastolic 75–95; PULSE 54–71; RESP 13–16; TEMP 36.2–36.5; O2SAT 93–96
--- NOTE | 2019-03-17 09:58 | W.PM.HP.N ---
Date of service: 03/17/19 Time of Service: 09:58 Assessment and Plan Assessment and plan (1) Right distal ureteral calculus: Status: Acute Assessment and plan: He has not passed his stone, so we will proceed with cystoscopy, retrograde pyelogram and ureteroscopic stone manipulation. History of Present Illness History of Present Illness Chief Complaint: Right ureteral stone Narrative: This is a 64-year-old gentleman who has a history of bilateral kidney stones. In the past, he has required ureteroscopy for a left-sided stone. He is known to have bilateral stone disease. We have been monitoring him to ensure the stability of the stones. He comes in after developing right lower abdominal discomfort nausea and vomiting. He tells me his symptoms improved after he vomited but he has had some low-grade discomfort and nausea. He is not seeing any gross hematuria. He has not had any dysuria or urinary retention. Based on his symptoms, he suspects that 1 of his stones was attempting to pass. Review of systems He has no fever or chills He has no chest pain or palpitations He has no nausea or vomiting Exam Const Other: He does not appear septic or toxic His vital signs documented elsewhere He is awake, alert and oriented His urinalysis shows no evidence of infection I reviewed today's KUB. He has 2 large stones (1 in each kidney) that do not appear to have changed in position. A stone that previously had been in the right upper pole now appears to be in the area of right proximal ureter. LUNGS ARE CLEAR CARDIAC EXAM SHOWS A REGULAR RATE AND RHYTHM NO OTHER CHANGES WITH EXCEPTION OF BETTER URINARY FLOW SINCE STARTING FLOMAX PFSH Social History Smoking/Tobacco Use Status: Former Tobacco Use Alcohol Intake: former Drug use: Never Substance use type: does not use Do you feel safe at home: Yes Do you feel safe in your relationship?: Yes Meds Home Medications and Allergies Home Medications Medication Instructions Recorded Confirmed Type multivitamin 1 ea PO DAILY 07/03/12 03/17/19 History atenolol 25 mg PO DAILY 04/04/18 03/17/19 History venlafaxine [Effexor XR] 75 mg PO DAILY 09/18/18 03/17/19 History hydrocodone 5 mg-acetaminophen 325 1 tab PO Q6H #20 tab MDD 6 03/11/19 03/17/19 Rx mg tablet ondansetron HCl 8 mg tablet 8 mg PO Q8H PRN #15 tab 03/11/19 03/17/19 Rx tamsulosin 0.4 mg capsule 0.4 mg PO DAILY #7 cap 03/11/19 03/17/19 Rx Allergies Allergy/AdvReac Type Severity Reaction Status Date / Time Tetanus Vaccines and Toxoid Allergy Severe Anaphylaxsi Verified 03/17/19 09:55 [Tetanus Vaccines & Toxoid] s
[2019-03-17] MEDS: Lactated Ringers 1,000 ML 80 ML IV (10:25)
[2019-03-17] MEDS: GENTAMICIN 120 MG in Normal Saline 100 ML 206 MG IVPB (10:42)
[2019-03-17] MEDS: ceFAZolin 2 GM/50 ML BAG IVPB (11:35)
[2019-03-17] MEDS: Lidocaine 2% Jelly 6 ML SYR (11:54)
[2019-03-17] MEDS: Omnipaque 300 MG/ML 50 ML BTL (11:54)
--- NOTE | 2019-03-17 12:09 | W.PM.DSUDISC ---
Discharge Plan Disposition Patient Disposition: HOME Condition: Stable Discharge Details Reason For Visit: (R) URETERAL STONE Attending Provider: Todd Harrison Primary Care Provider: Garland Payan Home Meds and New Rx's Prescriptions: Continued hydrocodone-acetaminophen 5-325 mg tablet 1 tab PO Q6H MDD 6 Qty: 20 RF: 0 tamsulosin 0.4 mg capsule 0.4 mg PO DAILY Qty: 30 RF: 0 No Action ondansetron HCl 8 mg tablet 8 mg PO Q8H PRN (Reason: nausea and vomiting) Qty: 15 RF: 0 multivitamin 1 EACH capsule 1 ea PO DAILY RF: 0 atenolol 25 mg Tablet 25 mg PO DAILY RF: 0 venlafaxine [Effexor XR] 75 mg Capsule,Extended Release 24hr 75 mg PO DAILY RF: 0 Discharge Instructions Additional Instructions: No need to strain urine F/U 1 week to have stent removed (tell my office pt has string on stent) F/U appt 6 weeks for renal Us and to review stone analysis Activity:: Activity as Tolerated Shower/Bathe:: 24 hours Diet:: As Tolerated Discharge Orders Discharge Orders: Discharge Order (Routine); Ordered 03/17/19 Ordered By: Todd Harrison DS: Diagnosis Discharge Diagnosis (1) Right distal ureteral calculus: Status: Acute
--- NOTE | 2019-03-17 12:32 | DI.RAD_ITS ---
EXAM: XR RETROGRADE IN OR INDICATION: bilateral cystoscopy. COMPARISON: No exams were available for comparison TECHNIQUE: 2D digital imaging was performed. FINDINGS: Fluoroscopy was utilized by Dr. Harrison during retrograde evaluation of the renal collecting systems. Please refer to the procedure report for complete details. Fluoro Time: 69.7 seconds
[2019-03-17] MEDS: Phenazopyridine 200 MG TAB PO (13:09)
[2019-03-17] MEDS: Oxybutynin 5 MG TAB PO (14:14)
--- NOTE | 2019-03-17 14:58 | ROE_ITS ---
DATE OF PROCEDURE: March 17, 2019 PREOPERATIVE DIAGNOSIS: Right ureteral stone. POSTOPERATIVE DIAGNOSIS: Same. PROCEDURE: Cystoscopy; bilateral retrograde pyelogram; right flexible ureteroscopy; holmium laser of ureteral stone; stone extraction; insert right ureteral stent. SURGEON: Todd Harrison M.D. ANESTHESIA: General. COMPLICATIONS: None. ESTIMATED BLOOD LOSS: Minimal. HISTORY: This is a 64-year-old gentleman who has a history of bilateral kidney stones. He presented to the office with right-sided pain. A KUB demonstrated what appeared to be the previously-seen rig ht upper pole stone in the right proximal ureter. We treated him conservatively but he was not able to pass the stone. He presents now for stone manipulation. OPERATIVE REPORT: The patient was brought to the Operating Room on 03/17/19. After successful induct ion of general anesthesia, he was placed in the dorsal lithotomy position. His genitalia was prepped and draped sterilely. A 22 Nepalese rigid cystoscope was passed through the urethra into the bladder. The bladder was inspec zach using a 30-degree lens. The pendulous, bulbous and membranous urethras appeared normal with no strictures. The prostatic ure thra showed an elevated bladder neck. There was some increased vascularity at this region. Once the bladder neck was entered we were able to visualize both ureteral orifices. We began on the right side and passed a 6 Nepalese access catheter through the cystoscope. We maneuvered the access ca theter into the right distal ureter. A retrograde film was obtained by injecting Omnipaque through the access catheter under fluoroscopic guidance. A filling defect was seen in the mid-ureter region. I was then able to pass a guidewire through the access catheter and bypass the stone. A dual-lumen catheter was advanced over the wire and a second wire was positioned. We chose one of t he wires as a working wire and the other as a safety wire. The ureteral access sheath was then advanced over the working wire, leaving the safety wire in place. We passed the flexible ureteroscope through the access sheath up to the level of the stone. The ston e was visualized and was treated with a holmium laser. We used a 272 micron holmium laser fiber and we used the dusting setting with a power of 200 and a rate of 8. Once the stone volume was diminished by about 50%, we grasped the largest fragment and removed it in its entirety. The stone was then sent to Pathology for chemical analysis. We reinserted the flexible ureteroscope. We withdrew the access sheath and visualized the ureteral m ucosa. There did appear to be a ureteral defect from the level of the ureterovesical junction up to an area just below the previously-identified stone. This corresponds with the ureteral access sheath location. For this reason, we decided to place a ureteral stent. We chose a 4.8 Nepalese stent with a variable length. We inserted the stent over the safety wire and positioned it with the proximal en d in the renal pelvis and the distal end within the bladder. We left the safety string in place. Th e string came out through the urethral meatus and was taped onto the dorsum of the penis. The patient tolerated this procedure well. There were no complications. cc: Garland Payan M.D.
[2019-03-19 19:54] LABS: Source: Right Ureter
== END 2019-03-17 14:14 | disposition home or self-care (01) ==
PROVIDERS: PCP General Practice; Visit Provider Urology
PROC: (CPT 52356; principal; 2019-03-17 11:30)
DX: N20.1 Calculus of ureter (principal); I10 Essential (primary) hypertension
CPT/HCPCS: 52356; NC; 74420; 82365; J0690; J1100; J1580; J1885; J2250; J2405; Q9967

== ENCOUNTER 2019-04-29 01:29 | Outpatient (CLI) | payer OTHER, SELFPAY ==
--- NOTE | 2019-04-29 14:22 | DI.US_ITS ---
EXAM: US RENAL CLINICAL HISTORY: R/O HYDRONEPHROSIS AFTER URETEROSCOPY N20.1 CALCULUS OF URETER. TECHNIQUE: Adkins scale, color and spectral Doppler were used. COMPARISON: No exams were available for comparison FINDINGS: Renal size in cm: Right: 11.3 left: 12.4 Echogenicity: Normal Hydronephrosis: No Cyst or mass: No Nephrolithiasis: 9 mm echogenic focus in the lower pole of the right kidney suggestive of a nonobstru cting stone. Other findings: None Bladder:Normal. Normal bladder wall thickness of 2.4 mm. Both ureteral jets were visualized. No in traluminal masses are present. Prostatic volume is within normal limits at 11 cc. Prevoid vol:63 cc Postvoid vol:0 cc IMPRESSION: 1. No hydronephrosis. 2. Right nephrolithiasis.
== END 2019-04-29 01:49 ==
PROVIDERS: PCP Family Medicine; Visit Provider Urology
DX: N20.0 Calculus of kidney (principal)
CPT/HCPCS: 76770

== ENCOUNTER 2019-05-06 09:35 | Outpatient (CLI) | payer OTHER, SELFPAY ==
--- NOTE | 2019-05-06 09:48 | DI.RAD_ITS ---
EXAM: XR KNEE RT 2V AP,LAT CLINICAL HISTORY: pain TECHNIQUE: COMPARISON: XR knee RT 2V AP,lat from 09/18/2018 FINDINGS: Two views were obtained and show total knee joint replacement in position. The components appear wel l seated. No other significant bony abnormality seen. IMPRESSION:
== END 2019-05-06 09:55 ==
PROVIDERS: PCP Family Medicine; Visit Provider Orthopaedic Surgery
DX: Z96.651 Presence of right artificial knee joint (principal); Z47.1 Aftercare following joint replacement surgery; M25.561 Pain in right knee
CPT/HCPCS: 73560

== ENCOUNTER 2019-07-11 02:22 | Outpatient (CLI) | payer OTHER, SELFPAY ==
[2019-07-11 16:09] LABS: Calculated LDL 88 mg/dL (<100); Cholesterol 155 mg/dL (<200); HDL Cholesterol 49 mg/dL (40-60); Triglyceride 92 mg/dL (<150)
== END 2019-07-11 02:42 ==
PROVIDERS: PCP Family Medicine; Visit Provider Internal Medicine Endocrinology, Diabetes & Metabolism
DX: Z13.220 Encounter for screening for lipoid disorders (principal)
CPT/HCPCS: 36415; 80061

== ENCOUNTER 2020-05-14 06:13 | Observation (INO) | payer OTHER, SELFPAY ==
[2020-05-14] VITALS (52 sets, daily range): BP systolic 111–172; BP diastolic 64–102; PULSE 58–84; RESP 12–21; TEMP 36.2–36.6; O2SAT 93–98
--- NOTE | 2020-05-14 06:00 | RT.EKG_ITS ---
APPROVED REPORT Exam: Resting ECG Patient Location: E HR:66 bpm ECG Measurements Heart Rate 66 AXIS UT 250 P 40 QRSd 163 QRS -54 QT 461 T 68 QTc 484 Conclusion Sinus rhythm...normal P axis, V-rate 60- 99 Prolonged UT interval...UT >220, V-rate 50- 90 Left bundle branch block...QRSd>120, broad/notched R ST elevation secondary to IVCD...Multiple VCG criteria There are no significant changes compared to prior EKG performed on 09/06/2018 at 14:25.
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
--- NOTE | 2020-05-14 06:30 | DI.RAD_ITS ---
EXAM: XR PORTABLE CHEST AP CLINICAL HISTORY: chest pain. TECHNIQUE: 2D digital imaging was performed. COMPARISON: CR CHEST 2 VIEWS PA,LAT from 05/28/2014 FINDINGS: Heart size upper normal. The mediastinum is not widened. The chest leads in place. Chronic elevation of the right hemidiaphragm is again noted, unchanged from 2015. There is subtle nodular infiltrate in the mid left lung zone. Also mild increased markings in the ri ght lung base which are unchanged. No obvious pleural effusions on this portable view. IMPRESSION: Nodular infiltrate in the mid left lung which measures approximately 2 cm x [address] scan follow-up recommended. DATA REPOSITORY: RADIATION DOSE DELIVERED:
[2020-05-14] MEDS: nitroGLYcerin 0.4 MG TAB SL (06:36)
[2020-05-14 06:38] LABS: Abs Immature Grans 0.03 10^3/uL (0.0-0.06); Absolute Basophil Count 0.04 10^3/uL (0.0-0.2); Absolute Lymphocyte Count 1.69 10^3/uL (1.2-3.4); Absolute Monocyte Count 0.77 10^3/uL (0.1-0.8); Absolute Neutrophil Count 3.76 10^3/uL (1.2-6.7); Basophils % 0.6; Eosinophils % 4.6; HCT 44.7 % (40.0-50.0); HGB 15.3 g/dL (13.5-17.5); Immature Grans % 0.5; Lymphocytes % 25.6; MCH 31.9 pg (27.0-33.0); MCHC 34.2 % (32.0-36.0); MCV 93.1 fL (80-95); MPV 8.6 fL (8.0-11.0); Monocytes % 11.7; Nucleated RBC 0 %; Platelet Count 182 10^3/uL (130-400); RDW-SD 44.5 fL; WBC 6.59 10^3/uL (4.4-10.8)
[2020-05-14] MEDS: Aspirin 81 MG CHEW 324 MG CH (06:47)
--- NOTE | 2020-05-14 06:49 | NUR.NOTE ---
Addendum entered by Sia De La Garza 05/14/20 06:53: 0651 pain is now just a twinge Original Note: 0636 1st nitro pain 6/10 BP 155/95 HR 68 0641 2nd nitro pain 2/10 BP 130/83 HR 74 0646 3rd nitro pain 2/10 BP 125/75 HR 77
[2020-05-14 07:10] LABS: ALT 80 U/L (16-63); AST 52 U/L (15-37); Albumin 3.7 g/dL (3.4-5.0); Alkaline Phosphatase 98 U/L (46-116); Anion Gap 4.1 mmol/L (3-11); BUN 16 mg/dL (7-18); Bilirubin, Total 0.7 mg/dL (0.2-1.0); CO2 29.9 mmol/L (21.0-32.0); CREATININE 0.9 mg/dL (0.70-1.30); Calcium 8.7 mg/dL (8.5-10.1); Chloride 104 mmol/L (98-107); Glucose 101 mg/dL (74-106); Magnesium 1.9 mg/dL (1.8-2.4); Potassium 4.2 mmol/L (3.5-5.1); Sodium 138 mmol/L (136-145)
--- NOTE | 2020-05-14 07:12 | DI.VRAD_ITS ---
PROCEDURE INFORMATION: Exam: XR Chest, 1 View Exam date and time: 05/14/2020 6:32 AM Age: 65 years old Clinical indication: Chest pain; Type not specified TECHNIQUE: Imaging protocol: XR of the chest Views: 1 view. COMPARISON: CR CHEST 2 VIEWS PA,LAT 05/28/2014 10:50 AM FINDINGS: Lungs: There are patchy hazy interstitial infiltrates bilaterally in the periphery of the left mid lung zone and in the right base along the diaphragm. This may represent an interstitial pneumonitis. Clinical correlation and follow-up are advised.. Pleural spaces: Unremarkable. No pleural effusion. No pneumothorax. Heart/Mediastinum: Unremarkable. No cardiomegaly. Diaphragm: There is stable chronic elevation of the right hemidiaphragm. Bones/joints: Unremarkable. IMPRESSION: There are bilateral patchy hazy interstitial infiltrates which are suspicious for an interstitial pneumonia. Dictated and Authenticated by: Dawson Mayen MD. Ordering:ARIEL Miner MD
[2020-05-14 07:13] LABS: Troponin I < 0.05 ng/mL (<0.06)
--- NOTE | 2020-05-14 07:30 | DI.CT_ITS ---
EXAM: CT CHEST PE CTA CLINICAL HISTORY: chest pain and positive d-dimer. TECHNIQUE: Imaging Protocol: CT angiography of the chest was performed using pulmonary embolus dayo col. Multi planar reconstructions were performed. CONTRAST MATERIAL: Intravenous: Omnipaque 350 Contrast volume: 100 cc COMPARISON: CT CT renal colic wo from 04/04/2018 FINDINGS: CHEST: There is a hernia in the right hemidiaphragm with herniation part of the liver and gallbladder and me senteric fat through this diaphragm hernia into the chest, this resulting in the appearance of an alisha vated hemidiaphragm on the chest x-ray (which is not new). PULMONARY ARTERIES: There are no intraluminal filling defects to suggest acute pulmonary emboli. LUNGS: There is some mild infiltrate in the posterior basal segment of the right lower lobe.. There are no infiltrates in the left lung. No true pleural effusions. No focal findings in trachea and ma instem bronchi.. MEDIASTINUM: There is no hilar nor mediastinal adenopathy. Visualized thyroid unremarkable. CARDIAC: Heart size is normal. There is no pericardial effusion.Caliber of the thoracic aorta is wit hin normal limits. Left vertebral artery is noted to originate is an independent vessel off the aort ic arch. There is no evidence of shift of the interventricular septum. PARTIALLY VISUALIZED UPPERMOST ABDOMEN: As described above there is a right diaphragmatic hernia. OSSEOUS: No significant osseous lesions.. IMPRESSION: 1. No evidence of acute pulmonary emboli. No evidence of pulmonary infarction.No pleural effusions. 2. Mild infiltrate noted in the posterior basal segment of the right lower lobe. There are no infilt rates in the opposite-left lung. No intrathoracic adenopathy. 3. There is a hernia in the right hemidiaphragm with herniation of part of the liver and the gallblad blanca into the right hemithorax, this accounting for the ???elevated right hemidiaphragm??? as seen on recent prior chest x-rays. RADIATION DOSE DELIVERED: LINK-TO-SR Total DLP DATA REPOSITORY: All CT scans at this facility are submitted to the National Radiology Data Registry (NRDR) Dose Index Registry (DIR) with the [employer] (ACR). RADIATION OPTIMIZATION: All CT scans at this facility use at least one of these dose optimization te chniques: automated exposure control; mA and/or kV adjustment per patient size (includes targeted exa ms where dose is matched to clinical indication); or iterative reconstruction.
[2020-05-14 07:34] LABS: D-Dimer 969 ng/mlFEU (<500)
[2020-05-14] MEDS: Normal Saline 250 ML IV (07:43)
[2020-05-14 08:02] LABS: NT-proBNP 62 pg/mL (<300)
[2020-05-14] MEDS: Omnipaque 350 MG/ML 100 ML BTL IJ (08:15)
--- NOTE | 2020-05-14 08:45 | RT.EKG_ITS ---
APPROVED REPORT Exam: Resting ECG Patient Location: E HR:59 bpm ECG Measurements Heart Rate 59 AXIS UT 258 P 28 QRSd 159 QRS -54 QT 465 T 62 QTc 462 Conclusion Sinus bradycardia...rate< 60 Prolonged UT interval...UT >220, V-rate 50- 90 Left bundle branch block...QRSd>120, broad/notched R ST elevation secondary to IVCD...Multiple VCG criteria I have reviewed and interpreted ECG and agree with software generated interpretation.
[2020-05-14 09:54] LABS: Troponin I < 0.05 ng/mL (<0.06)
[2020-05-14 10:26] LABS: Source Nasopharynx
[2020-05-14 11:01] LABS: Magnesium 2.1 mg/dL (1.8-2.4); NT-proBNP 67 pg/mL (<300)
[2020-05-14 11:06] LABS: COVID-19 PCR Negative (Negative); Influenza A PCR Negative (Negative); Influenza B PCR Negative (Negative); RSV PCR Negative (Negative)
[2020-05-14] MEDS: Enoxaparin 40 MG/0.4 ML SYR SC (12:43)
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
[2020-05-14 17:19] LABS: Troponin I < 0.05 ng/mL (<0.06)
[2020-05-14] MEDS: Milk of Magnesia 30 ML CUP PO (19:20)
[2020-05-14] MEDS: Mylanta Suspension 30 ML CUP PO (23:17)
[2020-05-14] MEDS: Acetaminophen 325 MG TAB 650 MG PO (23:18)
[2020-05-15 03:36] VITALS: BP 142/78; PULSE 82; RESP 17; TEMP 37.7; O2SAT 92
[2020-05-15 07:37] LABS: Anion Gap 5.5 mmol/L (3-11); BUN 14 mg/dL (7-18); CO2 26.5 mmol/L (21.0-32.0); CREATININE 0.8 mg/dL (0.70-1.30); Calcium 8.8 mg/dL (8.5-10.1); Chloride 105 mmol/L (98-107); Glucose 100 mg/dL (74-106); Sodium 137 mmol/L (136-145)
[2020-05-15 07:42] LABS: Troponin I < 0.05 ng/mL (<0.06)
[2020-05-15 07:55] VITALS: BP 150/86; PULSE 81; RESP 17; TEMP 36.6; O2SAT 92
[2020-05-15 08:03] LABS: Calculated LDL 78 mg/dL (<100); Cholesterol 141 mg/dL (<200); HDL Cholesterol 53 mg/dL (40-60); Triglyceride 50 mg/dL (<150)
[2020-05-15] MEDS: Lisinopril 10 MG TAB PO (09:18)
[2020-05-15] MEDS: Multivitamin TAB 1 TAB PO (09:18)
[2020-05-15] MEDS: Omeprazole 20 MG CAPCR PO (09:18)
[2020-05-15] MEDS: Venlafaxine 37.5 MG CAPCR 75 MG PO (09:18)
[2020-05-15] MEDS: Acetaminophen 325 MG TAB 650 MG PO (09:19)
[2020-05-15] MEDS: Atenolol 25 MG TAB PO (09:19)
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
[2020-05-15 10:31] VITALS: PULSE 76
== END 2020-05-15 14:49 | disposition home or self-care (01) ==
LOC: ER 10:21 → MS 11:03
PROVIDERS: Emergency Medicine; Admitting Provider Internal Medicine; Emergency Provider Physician Assistant; PCP Family Medicine; Visit Provider Internal Medicine
DX: R07.9 Chest pain, unspecified (principal); I10 Essential (primary) hypertension; E66.9 Obesity, unspecified; R73.03 Prediabetes; K21.9 Gastro-esophageal reflux disease without esophagitis; K44.9 Diaphragmatic hernia without obstruction or gangrene
CPT/HCPCS: 36415; 71275; 80048; 80053; 80061; 93005; 96360; 99217; 99220; 99285; J1650; 71045; 83735; 83880; 84484; 85025; 85379; 93010; G0378; J3490

== ENCOUNTER 2020-05-18 01:27 | Outpatient (CLI) | payer OTHER, SELFPAY ==
--- NOTE | 2020-05-18 07:45 | DI.US_ITS ---
EXAM: US RENAL CLINICAL HISTORY: Monitoring of Kidney stones,N20.0. TECHNIQUE: Adkins scale, color and spectral Doppler were used. COMPARISON: US US RENAL from 04/29/[address] CHEST PE CTA from 05/14/2020 FINDINGS: Renal size in cm: Right: 11.4. Left: 12.5. Echogenicity: Normal. Hydronephrosis: No. Cyst or mass: No. Nephrolithiasis: 0.9 cm echogenic shadowing focus in the lower pole of the right kidney consistent wi th nonobstructing stone. Other findings: None. Bladder:Normal. Ureteral jets: Right: Visualized and unremarkable. Left: Visualized and unremarkable. Prevoid vol:84 cc Postvoid vol:0 cc Prostate: Could not be adequately visualized sonographically. Renal color flow: Symmetric and within normal limits. IMPRESSION: Right nephrolithiasis. No hydronephrosis. DATA REPOSITORY:
== END 2020-05-18 01:28 | disposition home or self-care (01) ==
LOC: DI 01:28
PROVIDERS: PCP Family Medicine; Visit Provider Urology
DX: N20.0 Calculus of kidney (principal)
CPT/HCPCS: 76770

== ENCOUNTER 2020-05-27 00:52 | Outpatient (CLI) | payer OTHER, SELFPAY ==
--- NOTE | 2020-05-27 08:45 | DI.NM_ITS ---
APPROVED REPORT Exam: Pharmacologic Patient Location: Out-Patient Room/Bed: Stress Nurse: Camryn Vaughn RN Ordering Provider:ANDREI MAGDALENO, Contact Number: [phone] BMI: 34.16 Baseline Rhythm: 1st degree heart block, LBBB Indications: Chest pain. Medical History Medical History: GERD, HTN, ETOH use, Obesity, Prediabetes. Cardiac Medications: Lisinopril, Omeprazole, Atenolol Allergies: TDAP Cardiac Risk Factors: HTN, Obesity, Smoking (former) Previous Cardiac Procedures: None. Pretest Chest Pain Characteristics: None. Exercise History: Sedentary Physical Disabilities: None. Lung Sounds: Clear to auscultation Heart Sounds: Regular Stress Test Details Test: Pharmacologic stress testing performed using 0.4 mg of regadenoson per 5 mL given IV over 10 s econds. Reason for pharmacologic stress test: LBBB. Nuclear Acquisition: Rest Tc-99m/Stress Tc-99m 1 day Rest Isotope: Tc-99m Sestamibi. Dose: 12.0 Date: 05/27/2020 Injection Time: 0900 Stress Isotope: Tc-99m Sestamibi. Dose: 40 Date: 05/27/2020 Injection Time: 1025 HR Resting HR Supine: 77 bpm Max Heart Rate (APMHR): 156.312204 bpm Target HR (85% APMHR): 132.568720 bpm Max HR Achieved: 90 bpm % of APMHR: 57.69 Recovery HR: 82 bpm BP Resting BP Supine: 148/96 mmHg Max BP: 158/96 mmHg Recovery BP: 150/90 mmHg ECG Resting ECst degree AV block, LBBB Ectopy: None. Stress ECst degree AV block, LBBB ST Change: No significant ST segment changes noted Arrhythmia: None Recovery ECst degree AV block, LBBB Recovery ST Change: No significant ST segment changes noted Recovery Arrhythmia: None Clinical Rate Pressure Product: [id number] Stress ECG Conclusion 1. This is a pharmacological stress test. 2. Patient no symptoms suggestive of ischemia during infusion. 3. EKG portion of this exam is nondiagnostic. Stress Test Summary STAGE HR BP Symptoms NOTES Supine 77 148/96 1 min post Lexiscan injection 82 152/90 SOB 3 min post Lexiscan injection 90 158/96 resolved. 6 min post Lexiscan injection 82 150/90 MPI Conclusion The ejection fraction was 51% with stress. There were no wall motion abnormalities. There is a small area of fixed perfusion defect at the apex likely representing artifact. This represents a normal SPECT stress test. Radiologist Interpretation Radiologist agrees with Beater Engineer's Interpretation. Radiologist Interpretation by: Syd Marcano MD Interpretation Date/Time: 06/01/2020 14:17:53
[2020-05-27] MEDS: Regadenoson 0.4 MG/5 ML SYR IVP (10:27)
== END 2020-05-27 00:53 ==
PROVIDERS: PCP Family Medicine; Visit Provider Nurse Practitioner Family
DX: R07.9 Chest pain, unspecified (principal); I10 Essential (primary) hypertension; E66.9 Obesity, unspecified; Z87.891 Personal history of nicotine dependence
CPT/HCPCS: 78452; 93017; J2785

== ENCOUNTER 2021-01-11 15:25 | Outpatient (CLI) | payer OTHER, SELFPAY ==
--- NOTE | 2021-01-11 14:45 | DI.RAD_ITS ---
Exam(s) XR SHOULDER RT COMPLETE 2+V EXAM: XR SHOULDER RT COMPLETE 2+V CLINICAL HISTORY: right shoulder pain. TECHNIQUE: 2D digital imaging was performed of the right shoulder. Three images were obtained. AP and axillary views were obtained. COMPARISON: No exams were available for comparison FINDINGS: BONES: No acute fracture is present. No bony destructive lesion is seen. JOINTS: No dislocation present. There is narrowing of the glenohumeral joint. SOFT TISSUE: Normal. IMPRESSION: Narrowing of the glenohumeral joint. DATA REPOSITORY: RADIATION DOSE DELIVERED:
== END 2021-01-11 15:26 | disposition home or self-care (01) ==
LOC: DIORS 15:26
PROVIDERS: PCP Family Medicine; Visit Provider Student in an Organized Health Care Education/Training Program
DX: M25.511 Pain in right shoulder (principal); M19.011 Primary osteoarthritis, right shoulder
CPT/HCPCS: 73030

== ENCOUNTER 2022-07-13 02:47 | Outpatient (CLI) | payer OTHER, SELFPAY ==
[2022-07-13 16:07] LABS: ALT 78 U/L (16-63); AST 53 U/L (15-37); Albumin 3.5 g/dL (3.4-5.0); Alkaline Phosphatase 99 U/L (46-116); Anion Gap 3.5 mmol/L (3-11); BUN 14 mg/dL (7-18); Bilirubin, Total 0.7 mg/dL (0.2-1.0); CO2 32.5 mmol/L (21.0-32.0); CREATININE 0.8 mg/dL (0.70-1.30); Chloride 104 mmol/L (98-107); Estimated GFR 97.61 (mL/min/1.73m2); Glucose 105 mg/dL (74-106); Potassium 4.3 mmol/L (3.5-5.1); Sodium 140 mmol/L (136-145); Total Protein 6.7 g/dL (6.4-8.2)
[2022-07-17 12:49] LABS: TB Interpretation Negative (Negative); TB1 Ag minus Nil 0.01 IU/ml; TB2 Ag minus Nil 0.01 IU/mL
== END 2022-07-13 02:48 | disposition home or self-care (01) ==
LOC: LBO 02:47
PROVIDERS: Nurse Practitioner Family; PCP Family Medicine; Visit Provider Family Medicine
DX: I10 Essential (primary) hypertension (principal); Z02.1 Encounter for pre-employment examination; Z11.1 Encounter for screening for respiratory tuberculosis
CPT/HCPCS: 36415; 80053; 86480

== ENCOUNTER 2022-08-10 02:07 | Outpatient (CLI) | payer OTHER, SELFPAY ==
[2022-08-11 10:00] LABS: Hepatitis C Ab w Rflx HCV PCR Negative (Negative)
== END 2022-08-10 02:08 | disposition home or self-care (01) ==
LOC: LBO 02:07
PROVIDERS: PCP Family Medicine; Visit Provider Family Medicine
DX: R74.01 Elevation of levels of liver transaminase levels (principal)
CPT/HCPCS: 36415; 86803

== ENCOUNTER 2022-09-14 07:27 | Day surgery (SDC) | payer OTHER, SELFPAY ==
--- NOTE | 2022-09-13 21:50 | W.PM.DSUDISC ---
Date of service: 09/14/22 Time of Service: 10:46 Discharge Plan Disposition Patient Disposition: Home Condition: Stable Discharge Details Reason For Visit: Screening colonoscopy, ureteroscopy Attending Provider: Todd Harrison Primary Care Provider: Justen Magana Home Meds and New Rx's Prescriptions: New tramadol 50 mg tablet 50 mg PO Q6H MDD 4 PRN (Reason: pain) Qty: 20 0RF oxybutynin chloride 5 mg tablet 5 mg PO BID-TID PRN (Reason: bladder spasms) Qty: 12 0RF Continued ascorbate calcium (vitamin C) 500 mg tablet 500 mg PO DAILY losartan 50 mg tablet 50 mg PO DAILY Qty: 90 0RF atenolol 25 mg tablet 25 mg PO DAILY Qty: 90 3RF omeprazole 20 mg capsule,delayed release(DR/EC) 20 mg PO DAILY PRN (Reason: reflux) Qty: 90 3RF venlafaxine [Effexor XR] 75 mg capsule,extended release 24hr 75 mg PO DAILY Qty: 90 3RF multivitamin 1 EACH capsule 1 ea PO DAILY Discontinued bisacodyl [Dulcolax (bisacodyl)] 5 mg tablet,delayed release (DR/EC) 5 mg PO ONCE Qty: 4 0RF Rx Instructions: Take per colonoscopy instructions provided by ordering providers office polyethylene glycol 3350 17 gram/dose powder 17 g PO ONCE Qty: 238 0RF Rx Instructions: Take per colonoscopy instructions provided by ordering providers office Discharge Instructions Instructions: Diverticulosis (GEN), Diverticulosis Diet (GEN), Colorectal Polyps (GEN) Additional Instructions: Jeff, we were able to complete your colonoscopy today without any difficulty. You do have diverticulosis. Have attached some information here regarding general management of diverticular disease. I also found 1 polyp. It was quite small. I removed it completely. I will notify you when I have the results of the pathology report. 1. If tolerated, consume a soft, low fiber diet for 1-2 days. 2[address] Do not drive, drink alcohol, operate machinery, make critical decisions, or do activities that require coordination or balance for 24 hours. 3. Because air was put into your colon during the procedure, expelling air from your rectum (passing gas or farting) is normal. 4. You may not have a bowel movement for 1-3 days because of the colonoscopy prep. This is normal. 5. Go directly to the emergency room if you notice any of the following: Develop chills (warm to touch), or if you have a thermometer and your temperature is above 101 Difficulty breathing or difficultly swallowing Persistent vomiting Severe abdominal pain, other than gas cramps Severe chest pain Black, tarry stools Any bleeding ? exceeding one tablespoon 6. Call your physician if the site where your intravenous was started becomes red, swollen, painful, and warm to touch. 7. Your physician has reviewed your pre-procedure medications. Please continue to take those medications as previously ordered. You will be given specific information/education regarding any changes to your medications before leaving. Urology office will call to arrange followup procedure to remove stent and any remaining stone fragments at the lower part of the left kidney. Activity:: Activity as Tolerated Shower/Bathe:: 24 hours Diet:: As Tolerated Discharge Orders Discharge Orders: Discharge Order (Routine); Ordered 09/14/22 Ordered By: Todd Harrison DS: Diagnosis Discharge Diagnosis (1) Screen for colon cancer: Status: Acute Asessment and Plan: Follow-up on polypectomy results
--- NOTE | 2022-09-13 21:52 | W.COLOREPORT ---
Date of service: 09/14/22 Time of Service: 10:42 Colonoscopy Report Date of procedure: 09/14/22 Pre-op diagnosis general: Screening colonoscopy Post-op diagnosis procedure note: other (Diverticulosis, colon polyp at 100 cm) Procedure: Colonoscopy with polypectomy Surgeon: José Miguel Delvalle Anesthesia Type: General:No Airway Estimated blood loss (mL): 10 Pathology: other (Colon polyp at 100 cm) Complications: None Disposition: same day Indications: Jeff is a 67-year-old male who needs a screening colonoscopy. Prep: Miralax/Dulcolax Procedure Start Time: 10:07 Procedure End Time: 10:29 Retraction Time: 15 Findings: 0.25 cm colon polyp at 100 cm from the anus, diverticulosis. Procedure Description: I began my portion of the procedure after a urologic procedure by Dr. Harrison. Details that operation can be found under separate dictation. The patient had already been inducted with general endotracheal anesthesia. He was placed in lithotomy positioning for the urology portion of the operation, and I left him in this position for the colonoscopy. Prior to beginning the colonoscopy, we performed a routine timeout for my portion of the procedure. I began by performing an external anorectal exam.? Perineum and skin were normal, as was the anal verge.? There was no evidence of external hemorrhoids.? Next, I performed a digital rectal exam.? I did not appreciate any abnormal findings.? Next, I advanced a colonoscope into the rectal vault.? I performed retroflexion.? This appeared normal.? Using insufflation, I then advanced the colonoscope beyond the rectal folds and into the sigmoid colon before advancing towards the cecum.? There was sigmoid diverticulosis, which extended into the descending colon a bit. The quality of the prep was excellent.? The scope was noted to be in the cecum by identification of the ileocecal valve and appendiceal orifice.? I then began withdrawing the colonoscope using repeated irrigation as necessary for full evaluation of the colonic mucosa. Around 100 0.25 cm cm from the anal verge I identified a polyp. ?It appeared sessile cold forcep polypectomy in character. ?I was able to remove this with a . ?I examined the site, and there was minimal bleeding. ?Once this was completed, I continued to withdraw the scope and examine the remainder of the colonic mucosa.?Once the scope was withdrawn to the level of the rectum, great care was taken to examine portions of the rectal folds.? Finally, the scope was withdrawn and the patient was awoken from anesthesia and transferred to the recovery unit. ?The findings and instructions were shared with the patient prior to discharge.
[2022-09-14] VITALS (14 sets, daily range): BP systolic 81–140; BP diastolic 39–83; PULSE 54–71; RESP 15–25; TEMP 36.5–36.7; O2SAT 92–96; BMI 34.1
[2022-09-14] MEDS: Lactated Ringers 1,000 ML 80 ML IV (08:00)
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
--- NOTE | 2022-09-14 08:15 | DI.RAD_ITS ---
Exam(s) XR RETROGRADE IN OR EXAM: XR RETROGRADE IN OR CLINICAL HISTORY: LEFT KIDNEY STONE. TECHNIQUE: 2D digital imaging was performed. COMPARISON: No exams were available for comparison FINDINGS: Fluoroscopy provided during urologic procedure performed by the urologist. Please see procedure repo rt for details. Images reveal a left ureteral stent in place. Radiation exposure index/cumulative dose: rex Aguirre= 12.9 mGy IMPRESSION: DATA REPOSITORY: RADIATION DOSE DELIVERED:
[2022-09-14] MEDS: ceFAZolin 2 GM/50 ML BAG IVPB (08:30)
[2022-09-14] MEDS: Lidocaine 2% Jelly 6 ML SYR (08:58)
[2022-09-14] MEDS: Omnipaque 300 MG/ML 50 ML BTL (08:58)
--- NOTE | 2022-09-14 10:00 | W.PM.DSUDISC ---
Date of service: 09/14/22 Time of Service: 10:00 Discharge Plan Disposition Patient Disposition: Home Condition: Stable Discharge Details Reason For Visit: Screening colonoscopy, ureteroscopy Attending Provider: Todd Harrison Primary Care Provider: Justen Magana Home Meds and New Rx's Prescriptions: New tramadol 50 mg tablet 50 mg PO Q6H MDD 4 PRN (Reason: pain) Qty: 20 0RF oxybutynin chloride 5 mg tablet 5 mg PO BID-TID PRN (Reason: bladder spasms) Qty: 12 0RF Continued ascorbate calcium (vitamin C) 500 mg tablet 500 mg PO DAILY losartan 50 mg tablet 50 mg PO DAILY Qty: 90 0RF atenolol 25 mg tablet 25 mg PO DAILY Qty: 90 3RF omeprazole 20 mg capsule,delayed release(DR/EC) 20 mg PO DAILY PRN (Reason: reflux) Qty: 90 3RF venlafaxine [Effexor XR] 75 mg capsule,extended release 24hr 75 mg PO DAILY Qty: 90 3RF multivitamin 1 EACH capsule 1 ea PO DAILY Discontinued bisacodyl [Dulcolax (bisacodyl)] 5 mg tablet,delayed release (DR/EC) 5 mg PO ONCE Qty: 4 0RF Rx Instructions: Take per colonoscopy instructions provided by ordering providers office polyethylene glycol 3350 17 gram/dose powder 17 g PO ONCE Qty: 238 0RF Rx Instructions: Take per colonoscopy instructions provided by ordering providers office Discharge Instructions Additional Instructions: 1. If tolerated, consume a soft, low fiber diet for 1-2 days. 2[address] Do not drive, drink alcohol, operate machinery, make critical decisions, or do activities that require coordination or balance for 24 hours. 3. Because air was put into your colon during the procedure, expelling air from your rectum (passing gas or farting) is normal. 4. You may not have a bowel movement for 1-3 days because of the colonoscopy prep. This is normal. 5. Go directly to the emergency room if you notice any of the following: Develop chills (warm to touch), or if you have a thermometer and your temperature is above 101 Difficulty breathing or difficultly swallowing Persistent vomiting Severe abdominal pain, other than gas cramps Severe chest pain Black, tarry stools Any bleeding ? exceeding one tablespoon 6. Call your physician if the site where your intravenous was started becomes red, swollen, painful, and warm to touch. 7. Your physician has reviewed your pre-procedure medications. Please continue to take those medications as previously ordered. You will be given specific information/education regarding any changes to your medications before leaving. Urology office will call to arrange followup procedure to remove stent and any remaining stone fragments at the lower part of the left kidney. Activity:: Activity as Tolerated Shower/Bathe:: 24 hours Diet:: As Tolerated Discharge Orders Discharge Orders: Discharge Order (Routine); Ordered 09/14/22 Ordered By: Todd Harrison DS: Diagnosis Discharge Diagnosis (1) Kidney stone: Status: Chronic
--- NOTE | 2022-09-14 10:07 | W.PM.OP ---
Date of service: 09/14/22 Time of Service: 10:07 Operative Note Operative Note DATE OF PROCEDURE: 09/14/22 PRE-OP DIAGNOSIS: Left kidney stones POST-OP DIAGNOSIS: same PROCEDURE: Cystoscopy, left retrograde pyelogram, left flexible ureteroscopy with holmium laser lithotripsy, extraction of stone fragments, insert left ureteral stent SURGEON: Todd Harrison ANESTHESIA TYPE: General LMA/ETT Refer to Anesthesia Record ESTIMATED BLOOD LOSS: 20 PATHOLOGY: other (stones for chemical analysis) COMPLICATIONS: None Patient was transported to: no change Patient's condition: stable Implants: 6 Guamanian by 22 to 30 cm left ureteral stent Indications: This is a 67 year old man who has a history of urolithiasis. We have been monitoring him with renal US periodically. Lately, he has had some left flank pain. His stone burden has increased somewhat. He presents for stone manipulation. Findings: two large stones in upper pole calyces, two large stones in lower pole calyces Procedure Description: The patient was given preoperative IV antibiotics and brought to the operating room on 09/14/2022. After successful induction of general anesthesia, he was placed in the dorsal lithotomy position. His genitalia was prepped and draped. 2% Xylocaine jelly was instilled into the urethra to act as a local anesthetic. The 22 Guamanian rigid cystoscope was passed through the urethra into the bladder. The urethra and bladder were inspected with the 30 degree lens. The pendulous, bulbar and membranous urethra's appeared normal with no strictures. The prostatic urethra showed some lateral lobe enlargement but no significant median lobe. The bladder neck was entered and the bladder mucosa was inspected. The left ureteral orifice was visualized and was cannulated with a 6 Guamanian access catheter. A retrograde pyelogram was obtained by injecting Omnipaque through the access catheter under fluoroscopic guidance. Filling defects were seen in multiple upper pole and lower pole calyces. We then passed a guidewire through the lumen of the ureteral catheter and removed the catheter and cystoscope. We passed the dual-lumen catheter and positioned a second wire. We chose one of the wires as a working wire and the other as a safety wire. A ureteral access sheath was advanced over the working wire. We left the safety wire in place. The flexible ureteroscope was passed through the lumen of the ureteral access sheath and advanced up to the kidney. Each of the calyces were inspected. 4 large stones were seen on the left side. 2 of the stones were in upper pole calyces and to wear in the lower pole calyces. We began with the upper pole calyceal stones and treated them in situ with a 272 ?m holmium laser fiber. We were able to fragment the stones with a power setting of 0.8 and a rate of 8. Stone fragments were then grasped in a 0 tip stone basket and removed. As the procedure continued, some blood clots formed up in the kidney and visibility became difficult. There appeared to be some fat visible ureteroscopically. I passed a dual-lumen catheter over the safety wire and injected Omnipaque through the second lumen of the dual-lumen catheter. The calyces remained intact but there was some extravasation of contrast from the proximal ureter. We then placed a 6 Guamanian variable length stent over the safety wire. The proximal end of the stent was curled in the renal pelvis and the distal end was curled within the bladder. We will make arrangements to return to the operating room in a few weeks to remove the stent and recheck a retrograde pyelogram to ensure that the ureter is completely healed. We will also repeat flexible ureteroscopy to deal with the remaining lower pole kidney stones.
--- NOTE | 2022-09-14 10:25 | BOWEL_PTH ---
PATIENT: Jeff Beach LOC: [facility] U#:[id number] AGE/SX: 67/M ROOM: RE09/14/[address]: Todd Harrison MD : [id number] BED: DIS: 09/14/2022 SPEC #: [id number] RECD: 09/14/22 12:54 STATUS: ALEXANDRA REQ #: [id number] AME: 09/14/22 10:[address]: Todd Harrison DEPT: Surgical Specimen RECD BY: Dawna Crespo ENTERED: 09/14/22 12:54 SP TYPE: Bowel OTHR DR: Justen Magana DO Tissues: 1 - BIOPSY BOWEL Procedures: GROSS AND MICRO LEVEL 4 Comments: [id number]
--- NOTE | 2022-09-14 11:07 | W.ANESPOSTOP ---
Postoperative Evaluation Date, Time and Location Date Performed: 09/14/22 Time Performed: 11:08 Patient Location: PACU Vital Signs Most Recent Imported Vital Signs: Most Recent Vital Signs Temp Pulse Resp BP Pulse Ox 36.5 C 64 20 81/43 L 95 09/14/22 11:01 09/14/22 11:09/14/22 11:09/14/22 11:09/14/22 11:01 Pain Score Most Recent Pain Score: Most Recent Pain Score Pain Level 0 09/14/22 11:01 Assessment Mental Status: Arousable with meaningful communication Airway and Respiratory Function: Patent airway with normal (patient baseline) respiratory exam Cardiovascular Function: Hemodynamically Stable Hydration Status: Adequately Hydrated Nausea & Vomiting: No Nausea or Vomiting Pain: Pt. Denies Any Pain Peripheral Nerve Block: Patient did not receive a nerve block
[2022-09-14] MEDS: HYDROmorphone 2 MG/ML SYR IVP (12:53)
[2022-09-14] MEDS: Oxybutynin 5 MG TAB PO (12:54)
[2022-09-14] MEDS: traMADol 50 MG TAB PO (12:54)
[2022-09-14] MEDS: Normal Saline Flush 10 ML SYR IV (12:58)
[2022-09-20 14:57] LABS: Source: Left Kidney
== END 2022-09-14 14:00 | disposition home or self-care (01) ==
PROVIDERS: Surgery; PCP Family Medicine; Visit Provider Urology
PROC: (CPT 52356; principal; 2022-09-14 08:30)
PROC: 0DJD8ZZ Inspection of Lower Intestinal Tract, Via Natural or Artificial Opening Endoscopic (ICD-10-PCS; CPT 45378; 2022-09-14 08:30)
DX: N20.0 Calculus of kidney (principal); Z12.11 Encounter for screening for malignant neoplasm of colon; K57.30 Diverticulosis of large intestine without perforation or abscess without bleeding; D12.3 Benign neoplasm of transverse colon
CPT/HCPCS: 52356; 45380; 88305; 74420; 82365; J0690; J1100; J1170; J1885; J2250; J2405; J2704; J3010; Q9967

== ENCOUNTER 2022-10-05 06:09 | Day surgery (SDC) | payer OTHER, SELFPAY ==
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
[2022-10-05] VITALS (8 sets, daily range): BP systolic 77–130; BP diastolic 48–77; PULSE 56–67; RESP 11–16; TEMP 36.3–36.6; O2SAT 93–97; BMI 34.1
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
[2022-10-05] MEDS: Lactated Ringers 1,000 ML 80 ML IV (06:53)
[2022-10-05] MEDS: ceFAZolin 2 GM/50 ML BAG IVPB (07:52)
[2022-10-05] MEDS: Omnipaque 300 MG/ML 50 ML BTL (08:00)
[2022-10-05] MEDS: Lidocaine 2% Jelly 6 ML SYR (08:00)
--- NOTE | 2022-10-05 09:04 | W.PM.DSUDISC ---
Date of service: 10/05/22 Time of Service: 09:04 Discharge Plan Disposition Patient Disposition: Home Condition: Stable Discharge Details Reason For Visit: left kidney stone Attending Provider: Todd Harrison Primary Care Provider: Justen Magana Home Meds and New Rx's Prescriptions: Continued ascorbate calcium (vitamin C) 500 mg tablet 500 mg PO DAILY losartan 50 mg tablet 50 mg PO DAILY Qty: 90 0RF atenolol 25 mg tablet 25 mg PO DAILY Qty: 90 3RF omeprazole 20 mg capsule,delayed release(DR/EC) 20 mg PO DAILY PRN (Reason: reflux) Qty: 90 3RF venlafaxine [Effexor XR] 75 mg capsule,extended release 24hr 75 mg PO DAILY Qty: 90 3RF multivitamin 1 EACH capsule 1 ea PO DAILY oxybutynin chloride 5 mg tablet 5 mg PO BID-TID PRN (Reason: bladder spasms) Qty: 12 0RF tramadol 50 mg tablet 50 mg PO Q6H MDD 4 PRN (Reason: pain) Qty: 20 0RF Discharge Instructions Additional Instructions: no need to strain urine followup early next week for stent removal - tell my office pt has string on stent followup 6 to 8 weeks for renal US in office Activity:: Activity as Tolerated Shower/Bathe:: 24 hours Diet:: As Tolerated Discharge Orders Discharge Orders: Discharge Order (Routine); Ordered 10/05/22 Ordered By: Todd Harrison DS: Diagnosis Discharge Diagnosis (1) Kidney stone: Status: Chronic
--- NOTE | 2022-10-05 09:08 | W.PM.OP ---
Date of service: 10/05/22 Time of Service: 09:08 Operative Note Operative Note DATE OF PROCEDURE: 10/05/22 PRE-OP DIAGNOSIS: left kidney stones PROCEDURE: Cystoscopy, removal left ureteral stent, left retrograde pyelogram, left flexible ureteroscopy with extraction of stone fragments and holmium laser lithotripsy of the left lower pole stone, insert left ureteral stent SURGEON: Todd Harrison ANESTHESIA TYPE: Local By Surgeon and General LMA/ETT Refer to Anesthesia Record ESTIMATED BLOOD LOSS: 10 PATHOLOGY: other (stones for chemical analysis) Implants: 4.8 Vietnamese by 22 to 30 cm stent left ureter Indications: This is a 67-year-old gentleman who has a history of bilateral kidney stones. He was identified as having increasing stone burden on the left side. He had 2 large stones in the upper pole calyces and 2 large stones in the lower pole calyces. During his first procedure, we were able to address the upper pole calyceal stones. We lost visibility so we did not address the lower pole stones. He presents now for a staged ureteroscopy to address any residual stone particles. Findings: Small stone in upper ureter 2 larger stones in left lower pole calyces Procedure Description: The patient was brought to the operating room on 10/05/2022. He was given preprocedural IV antibiotics. After successful induction of general anesthesia, he was placed in the dorsal lithotomy position. His genitalia was prepped and draped. 2% Xylocaine jelly was instilled into the urethra to act as a local anesthetic. A 22 Vietnamese rigid cystoscope was passed through the urethra into the bladder. The urethra and bladder were inspected with a 30 degree lens. The pendulous, bulbar and membranous urethra's appeared normal with no strictures. The prostatic urethra showed some lateral lobe enlargement but no significant median lobe. The bladder neck was entered and the bladder mucosa was inspected. A stent could be seen protruding from the left ureteral orifice. The stent was grasped with alligator forceps and removed in its entirety. A 5 Vietnamese access catheter was then passed through the cystoscope and maneuvered into the left ureteral orifice. A retrograde film was obtained by injecting Omnipaque through the access catheter under fluoroscopic guidance. A filling defect was seen in the upper ureter. A guidewire was advanced up through the lumen of the access catheter and the catheter was removed. A dual-lumen catheter was advanced over the wire and a second wire was positioned. One of the wires was chosen as a working wire and the other as a safety wire. The ureteral access sheath was advanced over the working wire and positioned with the tip of the access sheath in the mid ureter. The flexible ureteroscope was then advanced through the access sheath up to the level of the filling defect seen on retrograde pyelogram. A small stone was seen embedded into the ureteral wall. The stone was teased free from the wall and grasped in a 0 tip stone basket. The stone was then extracted. The scope was then passed back up through the remainder of the ureter into the kidney. The upper pole calyces were inspected and no residual stones were found in this area. In the lower pole calyces, 2 large stones were seen. We were able to grasp a one of the stones and remove it in its entirety. The other stone was grasped in a 0 tip stone basket and moved to the renal pelvis where it was treated in situ using a 365 holmium laser fiber. We able to fragment the stone using a power setting of 0.8 and a rate of 8. At the completion of the procedure, no remaining large stone burden was identified. We removed the ureteroscope and the access sheath. We passed a 4.8 Vietnamese variable length stent over the safety wire. The proximal end of the stent was positioned in the renal pelvis and the distal end was positioned in the bladder. The bladder was emptied. The patient tolerated the procedure well with no complications.
--- NOTE | 2022-10-05 09:10 | DI.RAD_ITS ---
Exam(s) XR RETROGRADE IN OR EXAM: XR RETROGRADE IN OR CLINICAL HISTORY: 4 large stones in the left kidney. TECHNIQUE: 2D and realtime digital imaging was performed. COMPARISON: XA XR RETROGRADE IN OR from 09/14/2022 FINDINGS: Fluoroscopy was provided for Dr. Harrison. Please see procedure note for details. Fluoro time: 42.3seconds RADIATION DOSE DELIVERED: Ka,r=15.88 mGy
--- NOTE | 2022-10-05 10:12 | W.ANESPOSTOP ---
Postoperative Evaluation Date, Time and Location Date Performed: 10/05/22 Time Performed: 10:13 Patient Location: PACU Vital Signs Most Recent Imported Vital Signs: Most Recent Vital Signs Temp Pulse Resp BP Pulse Ox 36.3 C L 56 L 16 101/67 93 10/05/22 09:57 10/05/22 09:57 10/05/22 09:57 10/05/22 09:57 10/05/22 09:57 Pain Score Most Recent Pain Score: Most Recent Pain Score Pain Level 0 10/05/22 09:57 Assessment Mental Status: Awake (Alert & Oriented to Patient Baseline) Airway and Respiratory Function: Patent airway with normal (patient baseline) respiratory exam Cardiovascular Function: Hemodynamically Stable Hydration Status: Adequately Hydrated Nausea & Vomiting: No Nausea or Vomiting Pain: Pt. Denies Any Pain Peripheral Nerve Block: Patient did not receive a nerve block
[2022-10-05] MEDS: Phenazopyridine 200 MG TAB PO (10:48)
[2022-10-10 09:41] LABS: Source: Left Kidney
== END 2022-10-05 11:15 | disposition home or self-care (01) ==
PROVIDERS: PCP Family Medicine; Visit Provider Urology
PROC: (CPT 52356; principal; 2022-10-05 07:30)
DX: N20.0 Calculus of kidney (principal); I10 Essential (primary) hypertension; K21.9 Gastro-esophageal reflux disease without esophagitis; R73.03 Prediabetes
CPT/HCPCS: 52356; 74420; 82365; J0690; J1100; J2405; J3475; Q9967

== ENCOUNTER 2022-10-12 10:23 | Day surgery (SDC) | payer OTHER, SELFPAY ==
[2022-10-12] VITALS (7 sets, daily range): BP systolic 106–143; BP diastolic 57–89; PULSE 62–71; RESP 13–17; TEMP 36.6–36.8; O2SAT 93–97; BMI 34.9
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
[2022-10-12] MEDS: Lactated Ringers 1,000 ML 80 ML IV (11:23)
[2022-10-12] MEDS: ceFAZolin 2 GM/50 ML BAG IVPB (12:07)
--- NOTE | 2022-10-12 12:29 | W.PM.DSUDISC ---
Date of service: 10/12/22 Time of Service: 12:29 Discharge Plan Disposition Patient Disposition: Home Condition: Stable Discharge Details Reason For Visit: cystoscopy Attending Provider: Todd Harrison Primary Care Provider: Justen Magana Home Meds and New Rx's Prescriptions: No Action ascorbate calcium (vitamin C) 500 mg tablet 500 mg PO DAILY losartan 50 mg tablet 50 mg PO DAILY Qty: 90 0RF omeprazole 20 mg capsule,delayed release(DR/EC) 20 mg PO DAILY PRN (Reason: reflux) Qty: 90 3RF venlafaxine [Effexor XR] 75 mg capsule,extended release 24hr 75 mg PO DAILY Qty: 90 3RF atenolol 25 mg tablet 25 mg PO DAILY Qty: 90 3RF multivitamin 1 EACH capsule 1 ea PO DAILY oxybutynin chloride 5 mg tablet 5 mg PO BID-TID PRN (Reason: bladder spasms) Qty: 12 0RF tramadol 50 mg tablet 50 mg PO Q6H MDD 4 PRN (Reason: pain) Qty: 20 0RF Discharge Instructions Additional Instructions: follow up 11/17 as previously arranged Activity:: Activity as Tolerated Shower/Bathe:: 24 hours Diet:: As Tolerated Discharge Orders Discharge Orders: Discharge Order (Routine); Ordered 10/12/22 Ordered By: Todd Harrison DS: Diagnosis Discharge Diagnosis (1) Kidney stone: Status: Chronic
[2022-10-12] MEDS: Lidocaine 2% Jelly 6 ML SYR (12:33)
--- NOTE | 2022-10-12 13:40 | W.ANESPOSTOP ---
Postoperative Evaluation Date, Time and Location Date Performed: 10/12/22 Time Performed: 13:05 Patient Location: PACU Vital Signs Most Recent Imported Vital Signs: Most Recent Vital Signs Temp Pulse Resp BP Pulse Ox 36.7 C 62 13 107/79 96 10/12/22 13:09 10/12/22 13:09 10/12/22 13:09 10/12/22 13:09 10/12/22 13:09 Assessment Mental Status: Awake (Alert & Oriented to Patient Baseline) Airway and Respiratory Function: Patent airway with normal (patient baseline) respiratory exam Cardiovascular Function: Hemodynamically Stable Hydration Status: Adequately Hydrated Nausea & Vomiting: No Nausea or Vomiting Pain: Pain is tolerable per patient Peripheral Nerve Block: Patient did not receive a nerve block Postoperative Comments:: Pt. awake in PACU with red right cornea/eye. It appears that he likely has a corneal abrasion. His eyes were manually closed and then secured with eye tape during the procedure. I cannot identify when this might have occurred but did advise him it should get better over the next few days. He states it is mildly irritating. He will go home wiht an ofloxacin script as well as can use OTC artificial tears.
--- NOTE | 2022-10-12 15:12 | ROE_ITS ---
Date of service: 10/12/22 Time of Service: 12:30 Operative Note Operative Note DATE OF PROCEDURE: 10/12/22 PRE-OP DIAGNOSIS: Left kidney stone POST-OP DIAGNOSIS: same PROCEDURE: Cystoscopy with removal of left ureteral stent SURGEON: Todd Harrison ANESTHESIA TYPE: Local By Surgeon and General:No Airway Refer to Anesthesia Record ESTIMATED BLOOD LOSS: 0 PATHOLOGY: none sent COMPLICATIONS: None Patient was transported to: PACU Patient's condition: stable Implants: none Indications: This is a 67-year-old gentleman who has a history of left kidney stones. He had undergone a staged procedure with ureteroscopy and holmium laser lithotripsy of the stones. We left a ureteral stent in place and had planned on removing the stent in the office. When he presented to the office, his string was detached from the stent so he presents now for stent removal cystoscopically Findings: left ureteral stent Procedure Description: The patient was brought to the operating room on 10/12/2022. He was given pre procedural antibiotics. After successful induction of general anesthesia, he was placed in the dorsal lithotomy position. His genitalia was prepped and draped. 2% Xylocaine jelly was instilled into the urethra to act as a local anesthetic. 817 Mongolian rigid cystoscope was passed through the urethra into the bladder. The urethra and bladder were inspected with a 30 degree lens. The pendulous, bulbar and membranous urethra was all appeared normal with no strictures. The prostatic urethra showed some lateral lobe enlargement but no significant median lobe. The bladder neck was entered and the stent could be seen protruding from the left ureteral orifice. We were unable to pass an alligator forceps through the smaller cystoscope, so we utilized a Esther stone basket. We advanced the basket through the cystoscope and opened the basket. We were then able to trap at the end of the stent within the basket and remove the stent in its entirety. The patient tolerated this procedure well with no complications.
== END 2022-10-12 10:24 | disposition home or self-care (01) ==
PROVIDERS: PCP Family Medicine; Visit Provider Urology
PROC: 0TJB8ZZ Inspection of Bladder, Via Natural or Artificial Opening Endoscopic (ICD-10-PCS; CPT 52000; principal; 2022-10-12 11:45)
DX: N20.0 Calculus of kidney (principal); I10 Essential (primary) hypertension; E66.9 Obesity, unspecified; R73.03 Prediabetes
CPT/HCPCS: 52310; J0690; J1100; J2250; J2405; J2704

== ENCOUNTER 2022-10-29 16:52 | Outpatient (REF) | payer OTHER, SELFPAY ==
[2022-10-28 17:34] LABS: Abs Immature Grans 0.01 10^3/uL (0.0-0.06); Absolute Basophil Count 0.04 10^3/uL (0.0-0.2); Absolute Eosinophil Count 0.29 10^3/uL (0.0-0.7); Absolute Lymphocyte Count 1.35 10^3/uL (1.2-3.4); Absolute Monocyte Count 0.66 10^3/uL (0.1-0.8); Absolute Neutrophil Count 3.82 10^3/uL (1.2-6.7); Basophils % 0.6; Eosinophils % 4.7; HCT 41.1 % (40.0-50.0); HGB 14.4 g/dL (13.5-17.5); Immature Grans % 0.2; Lymphocytes % 21.9; MCH 31.9 pg (27.0-33.0); MCV 91 fL (80-95); MPV 9.5 fL (8.0-11.0); Monocytes % 10.7; Neutrophils % 61.9; Platelet Count 200 10^3/uL (130-400); RBC 4.51 10^6/uL (4.36-5.78); RDW 12.7 % (11.8-14.1); RDW-SD 42.1 fL; WBC 6.17 10^3/uL (4.4-10.8)
[2022-10-28 17:56] LABS: ALT 50 U/L (16-63); AST 35 U/L (15-37); Albumin 3.5 g/dL (3.4-5.0); Alkaline Phosphatase 94 U/L (46-116); Anion Gap 6.9 mmol/L (3-11); BUN 22 mg/dL (7-18); Bilirubin, Total 0.8 mg/dL (0.2-1.0); CO2 28.1 mmol/L (21.0-32.0); CREATININE 1.2 mg/dL (0.70-1.30); Calcium 8.9 mg/dL (8.5-10.1); Chloride 103 mmol/L (98-107); Glucose 120 mg/dL (74-106); Potassium 4.2 mmol/L (3.5-5.1); Sodium 138 mmol/L (136-145); TSH (W/Ref FT4) 2.47 uIU/mL (0.36-3.74); Total Protein 6.3 g/dL (6.4-8.2)
[2022-10-30 10:33] LABS: Lyme Ab w Rflx to Lyme Confirm Negative (Negative)
[2022-11-01 14:35] LABS: Anaplasma phagocytophilum Negative (Negative); B. miyamotoi PCR Negative (Negative); Babesia divergens/MO-1 Negative (Negative); Babesia duncani Negative (Negative); Babesia microti Negative (Negative); Ehrlichia chaffeensis Negative (Negative); Ehrlichia ewingii/canis Negative (Negative); Ehrlichia muris eauclairensis Negative (Negative)
== END 2022-10-29 16:53 | disposition home or self-care (01) ==
LOC: LBN 16:52
PROVIDERS: PCP Family Medicine; Visit Provider Physician Assistant
DX: R53.83 Other fatigue (principal); W57.XXXA Bitten or stung by nonvenomous insect and other nonvenomous arthropods, initial encounter; S80.862A Insect bite (nonvenomous), left lower leg, initial encounter; M79.18 Myalgia, other site; I10 Essential (primary) hypertension
CPT/HCPCS: 80053; 87798; 84443; 85025; 86618

== ENCOUNTER 2023-08-03 02:57 | Outpatient (CLI) | payer OTHER, SELFPAY ==
[2023-08-03 17:02] LABS: ALT 53 U/L (16-63); AST 43 U/L (15-37); Albumin 3.6 g/dL (3.4-5.0); Alkaline Phosphatase 88 U/L (46-116); Anion Gap 9.5 mmol/L (3-11); BUN 18 mg/dL (7-18); Bilirubin, Total 1.1 mg/dL (0.2-1.0); CO2 27.5 mmol/L (21.0-32.0); CREATININE 1.2 mg/dL (0.70-1.30); Calcium 8.6 mg/dL (8.5-10.1); Chloride 103 mmol/L (98-107); Estimated GFR 66.28 (mL/min/1.73m2); Glucose 99 mg/dL (74-106); Potassium 4.2 mmol/L (3.5-5.1); Sodium 140 mmol/L (136-145); Total Protein 6.9 g/dL (6.4-8.2)
== END 2023-08-03 02:58 | disposition home or self-care (01) ==
LOC: LBO 02:57
PROVIDERS: PCP Family Medicine; Visit Provider Family Medicine
DX: R73.03 Prediabetes (principal)
CPT/HCPCS: 36415; 80053

== ENCOUNTER 2024-02-12 15:20 | Outpatient (CLI) | payer OTHER, SELFPAY ==
--- NOTE | 2024-02-12 13:00 | DI.RAD_ITS ---
Exam(s) XR ELBOW RT LIMITED EXAM: XR ELBOW RT LIMITED CLINICAL HISTORY: elbow pain. TECHNIQUE: 2D digital imaging was performed. Two views. COMPARISON: No exams were available for comparison FINDINGS: BONES: No acute fracture is present. No bony destructive lesion is seen. JOINTS: The elbow is normally aligned. No joint effusion is seen. No significant degenerative change s. SOFT TISSUE: Swelling posterior to olecranon. No foreign body. IMPRESSION: Soft tissue swelling posterior to olecranon. DATA REPOSITORY: RADIATION DOSE DELIVERED:
== END 2024-02-12 15:21 | disposition home or self-care (01) ==
LOC: DIORS 15:20
PROVIDERS: PCP Family Medicine; Visit Provider Physician Assistant
DX: M70.21 Olecranon bursitis, right elbow (principal)
CPT/HCPCS: 73070

== ENCOUNTER 2024-05-14 14:26 | Outpatient (CLI) | payer OTHER, SELFPAY ==
[2024-05-14 21:54] LABS: PSA, Diagnostic 0.6 ng/mL (<=4.5)
== END 2024-05-14 14:27 | disposition home or self-care (01) ==
PROVIDERS: PCP Family Medicine; Visit Provider Urology
DX: N40.1 Benign prostatic hyperplasia with lower urinary tract symptoms (principal)
CPT/HCPCS: 36415; 84153